=== PATIENT | male | born 1945 | race Caucasian/White ===

== ENCOUNTER 2022-12-25 11:15 | Inpatient (IN) | payer MEDICARE ==
--- NOTE | 2022-12-25 11:45 | ED ---
General Adult HPI - General Chief complaint: Altered Mental Status Stated complaint: Altered Mental Status Time Seen by Provider: 12/25/22 11:22 Source: patient, EMS, RN notes reviewed Mode of arrival: EMS Limitations: altered mental status - History of Present Illness Initial comments: Patient is a pleasant 77-year-old male presenting to the emergency department with concerns for altered mental status. Patient was found outside of his vehicle. Patient is unaware where he is at. Patient states he lives in [place]. Patient was recently admitted for facility for cellulitis of left leg. Patient does not have a specific complaints otherwise. - Related Data Home Medications Medication Instructions Recorded Confirmed Albuterol Sulfate [Ventolin HFA] 2 puff INHALATION RT-Q4H PRN 12/25/22 12/25/22 Budesonide/Formoterol Fumarate 2 puff INHALATION RT-BID 12/25/22 12/25/22 [Symbicort 160-4.5 Mcg Inhaler] Ciprofloxacin HCl [Cipro] 500 mg PO BID 12/25/22 12/25/22 Furosemide [Lasix] 40 mg PO BID 12/25/22 12/25/22 Insulin Lispro Protamin/Lispro 35 unit SQ HS 12/25/22 12/25/22 [humaLOG MIX 75-25 Kwikpen] Insulin Lispro Protamin/Lispro 50 unit SQ DAILY 12/25/22 12/25/22 [humaLOG MIX 75-25 Kwikpen] Naproxen [Naprosyn] 500 mg PO BID PRN 12/25/22 12/25/22 Simvastatin [Zocor] 80 mg PO HS 12/25/22 12/25/22 lisinopriL [Prinivil] 10 mg PO DAILY 12/25/22 12/25/22 metroNIDAZOLE [Flagyl] 500 mg PO BID 12/25/22 12/25/22 Allergies Allergy/AdvReac Type Severity Reaction Status Date / Time No Known Allergies Allergy Verified 12/25/22 11:22 Review of Systems ROS Statement: Those systems with pertinent positive or pertinent negative responses have been documented in the HPI. ROS Other: All systems not noted in ROS Statement are negative. Constitutional: Denies: fever Eyes: Denies: eye pain ENT: Denies: ear pain Cardiovascular: Denies: chest pain Gastrointestinal: Denies: abdominal pain Genitourinary: Denies: urgency Musculoskeletal: Denies: back pain Skin: Reports: rash General Exam Limitations: altered mental status General appearance: alert, in no apparent distress Head exam: Present: atraumatic Eye exam: Present: normal appearance, PERRL, EOMI ENT exam: Present: normal oropharynx Neck exam: Present: normal inspection. Absent: tenderness, meningismus Respiratory exam: Present: normal lung sounds bilaterally Cardiovascular Exam: Present: regular rate, normal rhythm GI/Abdominal exam: Present: soft. Absent: tenderness Extremities exam: Present: pedal edema Neurological exam: Present: alert, CN II-XII intact. Absent: motor sensory deficit Expanded Neurological exam: Present: protecting the airway Patient oriented to: Present: person. Absent: place, time Speech: Present: fluid speech Cranial nerves: EOM's Intact: Normal Motor strength exam: RUE: 5, LUE: 5, RLE: 5, LLE: 5 Eye Response: (4) open spontaneously Motor Response: (6) obeys commands Verbal Response: (4) confused conversation Psychiatric exam: Present: normal affect, normal mood Skin exam: Present: erythema (Mild erythema left lower leg) Course Vital Signs 12/25/22 12/25/22 11:17 12:44 Temperature 97.9 F Pulse Rate 88 102 H Respiratory 19 20 Rate Blood Pressure 133/92 143/71 O2 Sat by Pulse 97 96 Oximetry EKG Findings - EKG Results: EKG: interpreted by LIZBETH, sinus rhythm, normal axis, normal QRS, normal ST/T EKG shows: tachycardia Medical Decision Making - Medical Decision Making Was pt. sent in by a medical professional or institution (, PA, FEED MANAGEMENT ADVISOR, urgent care, hospital, or fci...) When possible be specific @ -[No] Did you speak to anyone other than the patient for history (EMS, parent, family, police, friend...)? What history was obtained from this source @ -[No] Did you review nursing and triage notes (agree or disagree)? Why? @ -[I reviewed and agree with nursing and triage notes] Were old charts reviewed (outside hosp., previous admission, EMS record, old EKG, old radiological studies, urgent care reports/EKG's, fci records)? Report findings @ -Discharge paperwork reviewed from visit with diagnosed with cellulitis Differential Diagnosis (chest pain, altered mental status, abdominal pain women, abdominal pain men, vaginal bleeding, weakness, fever, dyspnea, syncope, headache, dizziness, GI bleed, back pain, seizure, CVA, palpatations, mental health, musculoskeletal)? @ -Differential Altered Mental Status: Hypoglycemia, DKA, hypercapnia, ETOH, overdose, CO poisoning, trauma, myxedema coma, HTN encephalopathy, infection, encephalitis, psychosis, intercranial hemorrhage, hepatic encephalopathy, meningitis, CVA, this is not meant to be an all-inclusive list EKG interpreted by me (3pts min.). @ -[As above] X-rays interpreted by me (1pt min.). @ -Chest x-ray shows no acute process left base of her probable fibrotic/ atelectasis changes CT interpreted by me (1pt min.). @ -Report reviewed U/S interpreted by me (1pt. min.). @ -[None done] What testing was considered but not performed or refused? (CT, X-rays, U/S, labs)? Why? @ -[None] What meds were considered but not given or refused? Why? @ -[None] Did you discuss the management of the patient with other professionals (professionals i.e. , PA, FEED MANAGEMENT ADVISOR, lab, RT, psych nurse, perinatal social worker, director industrial nursing, teacher, correctional security officer, warehouse operations manager)? Give summary @ -Case was discussed with Dr. yang, who will admit covering hospital call. Was smoking cessation discussed for >3mins.? @ -[No] Was critical care preformed (if so, how long)? @ -[No] Were there social determinants of health that impacted care today? How? (Homelessness, low income, unemployed, alcoholism, drug addiction, tra nsportation, low edu. Level, literacy, decrease access to med. care, shelter, rehab)? @ -[No] Was there de-escalation of care discussed even if they declined (Discuss DNR or withdrawal of care, Hospice)? DNR status @ -[No] What co-morbidities impacted this encounter? (DM, HTN, Smoking, COPD, CAD, Cancer, CVA, ARF, Chemo, Hep., AIDS, mental health diagnosis, sleep apnea, morbid obesity)? @ -[None] Was patient admitted / discharged? Hospital course, mention meds given and route, prescriptions, significant lab abnormalities, going to OR and other pertinent info. @ -Patient presented with altered mental status. Patient has mild hyponatremia, UTI and mild cellulitis. Patient will be admitted. Undiagnosed new problem with uncertain prognosis? @ -[No] Drug Therapy requiring intensive monitoring for toxicity (Heparin, Nitro, Insulin, Cardizem)? @ -[No] Were any procedures done? @ -[No] Diagnosis/symptom? @ -Altered mental status, UTI, hyponatremia, cellulitis Acute, or Chronic, or Acute on Chronic? @ -Acute, acute, acute, acute Uncomplicated (without systemic symptoms) or Complicated (systemic symptoms)? @ -[default] Side effects of treatment? @ -[No] Exacerbation, Progression, or Severe Exacerbation? @ -[No] Poses a threat to life or bodily function? How? (Chest pain, USA, MT, pneumonia, PE, COPD, DKA, ARF, appy, cholecystitis, CVA, Diverticulitis, Homicidal, Suicidal, threat to staff... and all critical care pts) @ -[No] - Lab Data Result diagrams: 12/25/22 11:48 12/25/22 11:48 Lab Results 12/25/22 12/25/22 12/25/22 Range/Units 11:48 11:48 11:48 WBC 8.9 (3.8-10.6) k/uL RBC 3.83 L (4.30-5.90) m/uL Hgb 12.8 L (13.0-17.5) gm/dL Hct 38.9 L (39.0-53.0) % MCV 101.4 H (80.0-100.0) fL MCH 33.3 (25.0-35.0) pg MCHC 32.8 (31.0-37.0) g/dL RDW 12.2 (11.5-15.5) % Plt Count 187 (150-450) k/uL MPV 7.5 Neutrophils % 67 % Lymphocytes % 24 % Monocytes % 6 % Eosinophils % 1 % Basophils % 0 % Neutrophils # 5.9 (1.3-7.7) k/uL Lymphocytes # 2.1 (1.0-4.8) k/uL Monocytes # 0.5 (0-1.0) k/uL Eosinophils # 0.1 (0-0.7) k/uL Basophils # 0.0 (0-0.2) k/uL PT 12.1 H (9.0-12.0) sec INR 1.2 H (<1.2) APTT 23.8 (22.0-30.0) sec Sodium (137-145) mmol/L Potassium (3.5-5.1) mmol/L Chloride (98-107) mmol/L Carbon Dioxide (22-30) mmol/L Anion Gap mmol/L BUN (9-20) mg/dL Creatinine (0.66-1.25) mg/dL Est GFR (CKD-EPI)AfAm (>60 ml/min/1.73 sqM) Est GFR (CKD-EPI)NonAf (>60 ml/min/1.73 sqM) Glucose (74-99) mg/dL Calcium (8.4-10.2) mg/dL Total Bilirubin (0.2-1.3) mg/dL AST (17-59) U/L ALT (4-49) U/L Alkaline Phosphatase (38-126) U/L Troponin I (0.000-0.034) ng/mL Total Protein (6.3-8.2) g/dL Albumin (3.5-5.0) g/dL Urine Color Yellow Urine Appearance Turbid (Clear) Urine pH 5.5 (5.0-8.0) Ur Specific [place] 1.027 (1.001-1.035) Urine Protein 1+ H (Negative) Urine Glucose (UA) 4+ H (Negative) Urine Ketones 3+ H (Negative) Urine Blood Moderate H (Negative) Urine Nitrite Negative (Negative) Urine Bilirubin Negative (Negative) Urine Urobilinogen <2.0 (<2.0) mg/dL Ur Leukocyte Esterase Large H (Negative) Urine RBC 36 H (0-5) /hpf Urine WBC >182 H (0-5) /hpf Urine WBC Clumps Moderate H (None) /hpf Urine Mucus Rare H (None) /hpf Urine Opiates Screen Detected H (NotDetected) Ur Oxycodone Screen Not Detected (NotDetected) Urine Methadone Screen Not Detected (NotDetected) Ur Propoxyphene Screen Not Detected (NotDetected) Ur Barbiturates Screen Not Detected (NotDetected) U Tricyclic Antidepress Not Detected (NotDetected) Ur Phencyclidine Scrn Not Detected (NotDetected) Ur Amphetamines Screen Not Detected (NotDetected) U Methamphetamines Scrn Not Detected (NotDetected) U Benzodiazepines Scrn Not Detected (NotDetected) Urine Cocaine Screen Not Detected (NotDetected) U Marijuana (THC) Screen Not Detected (NotDetected) Serum Alcohol mg/dL 12/25/22 12/25/22 Range/Units 11:48 11:48 WBC (3.8-10.6) k/uL RBC (4.30-5.90) m/uL Hgb (13.0-17.5) gm/dL Hct (39.0-53.0) % MCV (80.0-100.0) fL MCH (25.0-35.0) pg MCHC (31.0-37.0) g/dL RDW (11.5-15.5) % Plt Count (150-450) k/uL MPV Neutrophils % % Lymphocytes % % Monocytes % % Eosinophils % % Basophils % % Neutrophils # (1.3-7.7) k/uL Lymphocytes # (1.0-4.8) k/uL Monocytes # (0-1.0) k/uL Eosinophils # (0-0.7) k/uL Basophils # (0-0.2) k/uL PT (9.0-12.0) sec INR (<1.2) APTT (22.0-30.0) sec Sodium 129 L (137-145) mmol/L Potassium 4.4 (3.5-5.1) mmol/L Chloride 96 L (98-107) mmol/L Carbon Dioxide 20 L (22-30) mmol/L Anion Gap 13 mmol/L BUN 20 (9-20) mg/dL Creatinine 0.52 L (0.66-1.25) mg/dL Est GFR (CKD-EPI)AfAm >90 (>60 ml/min/1.73 sqM) Est GFR (CKD-EPI)NonAf >90 (>60 ml/min/1.73 sqM) Glucose 270 H (74-99) mg/dL Calcium 8.5 (8.4-10.2) mg/dL Total Bilirubin 1.1 (0.2-1.3) mg/dL AST 19 (17-59) U/L ALT 15 (4-49) U/L Alkaline Phosphatase 81 (38-126) U/L Troponin I <0.012 (0.000-0.034) ng/mL Total Protein 6.9 (6.3-8.2) g/dL Albumin 3.4 L (3.5-5.0) g/dL Urine Color Urine Appearance (Clear) Urine pH (5.0-8.0) Ur Specific [place] (1.001-1.035) Urine Protein (Negative) Urine Glucose (UA) (Negative) Urine Ketones (Negative) Urine Blood (Negative) Urine Nitrite (Negative) Urine Bilirubin (Negative) Urine Urobilinogen (<2.0) mg/dL Ur Leukocyte Esterase (Negative) Urine RBC (0-5) /hpf Urine WBC (0-5) /hpf Urine WBC Clumps (None) /hpf Urine Mucus (None) /hpf Urine Opiates Screen (NotDetected) Ur Oxycodone Screen (NotDetected) Urine Methadone Screen (NotDetected) Ur Propoxyphene Screen (NotDetected) Ur Barbiturates Screen (NotDetected) U Tricyclic Antidepress (NotDetected) Ur Phencyclidine Scrn (NotDetected) Ur Amphetamines Screen (NotDetected) U Methamphetamines Scrn (NotDetected) U Benzodiazepines Scrn (NotDetected) Urine Cocaine Screen (NotDetected) U Marijuana (THC) Screen (NotDetected) Serum Alcohol <10 mg/dL Disposition Clinical Impression: Altered mental status Disposition: ADMITTED IP TO THIS [facility] Is patient prescribed a controlled substance at d/c from ED?: No Referrals: Nonstaff,Physician [Primary Care Provider] - 1-2 days Time of Disposition: 13:57
[2022-12-25 12:02] LABS: Basophils % (A) 0 %; Eosinophils # (A) 0.1 k/uL (0-0.7); Eosinophils % (A) 1 %; HCT 38.9 % (39.0-53.0); HGB 12.8 gm/dL (13.0-17.5); Lymphocytes # (A) 2.1 k/uL (1.0-4.8); Lymphocytes % (A) 24 %; MCH 33.3 pg (25.0-35.0); MCHC 32.8 g/dL (31.0-37.0); MCV 101.4 fL (80.0-100.0); Mean Platelet Volume 7.5; Monocytes # (A) 0.5 k/uL (0-1.0); Monocytes % (A) 6 %; Neutrophils # (A) 5.9 k/uL (1.3-7.7); Neutrophils % (A) 67 %; Platelet Count 187 k/uL (150-450); RBC 3.83 m/uL (4.30-5.90); RDW 12.2 % (11.5-15.5); WBC 8.9 k/uL (3.8-10.6)
[2022-12-25 12:07] LABS: Appearance,Urine Turbid (Clear); Bilirubin,Urine Negative (Negative); Blood,Urine Moderate (Negative); Color,Urine Yellow; Glucose,Urine (UA) 4+ (Negative); Leukocyte Esterase,Urine Large (Negative); Mucus,Urine Rare /hpf; Nitrite,Urine Negative (Negative); PH, Urine 5.5 (5.0-8.0); Protein,Urine 1+ (Negative); RBC,Urine 36 /hpf (0-5); Specific Gravity,Urine 1.027 (1.001-1.035); Urobilinogen,Urine <2.0 mg/dL (<2.0); WBC,Urine >182 /hpf (0-5)
[2022-12-25 12:09] LABS: ALT 15 U/L (4-49); AST 19 U/L (17-59); African American GFR (CKD) >90 (>60 ml/min/1.73 sqM); Albumin 3.4 g/dL (3.5-5.0); Alcohol <10 mg/dL; Alkaline Phosphatase 81 U/L (38-126); Anion Gap 13 mmol/L; Blood Urea Nitrogen 20 mg/dL (9-20); Calcium 8.5 mg/dL (8.4-10.2); Carbon Dioxide 20 mmol/L (22-30); Chloride 96 mmol/L (98-107); Glucose 270 mg/dL (74-99); Non-African American GFR(CKD) >90 (>60 ml/min/1.73 sqM); Potassium 4.4 mmol/L (3.5-5.1); Sodium 129 mmol/L (137-145); Total Bilirubin 1.1 mg/dL (0.2-1.3); Total Protein 6.9 g/dL (6.3-8.2)
--- NOTE | 2022-12-25 12:11 | XR ---
EXAMINATION TYPE: XR chest 2V DATE OF EXAM: 12/25/2022 12:07 PM COMPARISON: None TECHNIQUE: XR chest 2V Frontal and lateral views of the chest. CLINICAL INDICATION:Male, 77 years old with history of altered mental status; FINDINGS: Lungs/Pleura: There is flattening of the diaphragm with increased lucency of the lungs. No evidence o f pneumothorax, pleural effusion or focal consolidation. Left basilar probable fibrotic changes/atele ctasis. Pulmonary vascularity: Unremarkable. Heart/mediastinum: Cardiomediastinal silhouette is unremarkable. Atherosclerotic calcifications are seen in the aorta. Musculoskeletal: Multiple level degenerative disc disease changes seen throughout the spine. IMPRESSION: COPD changes with left basilar probable fibrotic changes/atelectasis.
[2022-12-25 12:14] LABS: INR 1.2 (<1.2); Partial Thromboplastin Time 23.8 sec (22.0-30.0); Prothrombin Time 12.1 sec (9.0-12.0)
[2022-12-25 12:15] LABS: Ketones,Urine 3+ (Negative)
[2022-12-25 12:17] LABS: Amphetamine Screen,Urine Not Detected (NotDetected); Barbiturate Screen,Urine Not Detected (NotDetected); Benzodiazepines Screen,Urine Not Detected (NotDetected); Cocaine Screen,Urine Not Detected (NotDetected); Methadone Screen, Urine Not Detected (NotDetected); Opiate Screen,Urine Detected (NotDetected); Oxycodone Screen, Urine Not Detected (NotDetected); Phencyclidine Screen,Urine Not Detected (NotDetected); Tricyclic Antidepressant,Urine Not Detected (NotDetected); Urn Cannabinoid Scrn Not Detected (NotDetected)
--- NOTE | 2022-12-25 12:53 | CT ---
EXAMINATION TYPE: CT brain wo con CT DLP: 1902.1 mGycm, Automated exposure control for dose reduction was used. DATE OF EXAM: 12/25/2022 12:36 PM COMPARISON: None. CLINICAL INDICATION:Male, 77 years old with history of Altered mental status, Altered mental status. TECHNIQUE: Brain: Multiple axial CT images of the brain were obtained without IV contrast. Coronal and sagittal reformats reviewed. FINDINGS: Brain: Extra-axial spaces: No abnormal extra-axial fluid collections. Ventricular system: Dilatation in proportion to cerebral atrophy. Cerebral parenchyma: Cerebral atrophy. No acute intraparenchymal hemorrhage or mass effect. The mujica -white junction is well differentiated. Scattered hypoattenuating areas are seen within the white mat ter. Cerebellum: Unremarkable. Mass effect: No evidence of midline shift. Intracranial vasculature: Atherosclerotic calcifications of the intracranial vessels. Soft tissues: Normal. Calvarium/osseous structures: No depressed skull fracture. Post surgical changes from bilateral front al craniotomy. Paranasal sinuses and mastoid air cells: Mastoid air cells are clear. Postsurgical changes of the lonny ateral maxillary sinuses. Moderate mucosal thickening throughout the ethmoid and frontal sinuses. Visualized orbits: Bilateral aphakia IMPRESSION: 1. No acute intracranial process. 2. Nonspecific white matter changes, likely secondary to chronic small vessel ischemic disease. 3. Postsurgical changes. 4. Paranasal sinus disease.
[2022-12-25] MEDS ORDERED: ACETAMINOPHEN TAB 325 MG TAB PO PRN (13:58)
[2022-12-25] MEDS ORDERED: NALOXONE 0.4 MG/ML 1 ML VIAL IV PRN (13:58)
[2022-12-25] MEDS: SODIUM CHLORIDE 0.9% 1,000 ML IV SCH (14:55)
--- NOTE | 2022-12-25 15:24 | P.HPIM ---
History of Present Illness this is a pleasant 77 years old male with unknown past medical history Pt presents to for c/o ams after being found by passerby on side of road. Patient could not provide information. He is fully awake and answers questions mostly appropriately and logically however he does not know why he came to the hospital and who brought him to the hospital. As per staff and family patient got confusion a lot and this time he got confu sed as well and a pickup his keys and drove his car total return out of gas and then he started walking before police found him and brought him to the hospital Patient now time but he couldn't tell been informed of the president. Description of from dry cough. He denies any specific symptoms. He denies headache dizziness weakness or numbness. No chest pain or dyspnea. No abdominal pain vomiting diarrhea or urinary complaints. He is a 50 year smoker and he quit. Has been a while. No alcohol or illicit drugs. Currently patient looks comfortable and relaxed secondary Vitas looks stable, patient is afebrile, mildly tachycardic Labs: Hemoglobin 12.8, INR 1.2, sodium 129, glucose elevated 270. There is no BMP and liver enzymes are unremarkable. Urine analysis is suspicious for infection. Urine drug screen is positive for opioids CT of the brain: No acute process. chest xray: COPD changes, left basilar palpable fibrotic changes/atelectasis EKG: Sinus tachycardia 101, no significant ST-T changes. Patient is started on normal saline 75 mL/h AcipHex Review of Systems Review of systems CONSTITUTIONAL: No fever, no malaise, no fatigue. HEENT: No recent visual problems or hearing problems. Denied any sore throat. CARDIOVASCULAR: No orthopnea, PND, no palpitations, no syncope. PULMONARY: No shortness of breath, no cough, no hemoptysis. GASTROINTESTINAL: No diarrhea, no nausea, no vomiting, no abdominal pain. Normoactive bowel sounds. NEUROLOGICAL: No headaches, no weakness, no numbness. HEMATOLOGICAL: Denies any bleeding or petechiae. GENITOURINARY: Denies any burning micturition, frequency, or urgency. MUSCULOSKELETAL/RHEUMATOLOGICAL: Denies any joint pain, swelling, or any muscle pain. ENDOCRINE: Denies any polyuria or polydipsia. Medications and Allergies Home Medications Medication Instructions Recorded Confirmed Type Albuterol Sulfate [Ventolin HFA] 2 puff INHALATION RT-Q4H PRN 12/25/22 12/25/22 History Budesonide/Formoterol Fumarate 2 puff INHALATION RT-BID 12/25/22 12/25/22 History [Symbicort 160-4.5 Mcg Inhaler] Ciprofloxacin HCl [Cipro] 500 mg PO BID 12/25/22 12/25/22 History Furosemide [Lasix] 40 mg PO BID 12/25/22 12/25/22 History Insulin Lispro Protamin/Lispro 35 unit SQ HS 12/25/22 12/25/22 History [humaLOG MIX 75-25 Kwikpen] Insulin Lispro Protamin/Lispro 50 unit SQ DAILY 12/25/22 12/25/22 History [humaLOG MIX 75-25 Kwikpen] Naproxen [Naprosyn] 500 mg PO BID PRN 12/25/22 12/25/22 History Simvastatin [Zocor] 80 mg PO HS 12/25/22 12/25/22 History lisinopriL [Prinivil] 10 mg PO DAILY 12/25/22 12/25/22 History metroNIDAZOLE [Flagyl] 500 mg PO BID 12/25/22 12/25/22 History Allergies Allergy/AdvReac Type Severity Reaction Status Date / Time No Known Allergies Allergy Verified 12/25/22 11:22 Physical Exam Vitals: Vital Signs Temp Pulse Resp BP Pulse Ox 12/25/22 12:44 102 H 20 143/71 96 12/25/22 11:17 97.9 F 88 19 133/92 97 Intake and Output 12/24/22 12/25/22 12/25/22 22:59 06:59 14:59 Other: Weight 88.451 kg -GENERAL: The patient is alert and oriented x1-2, not in any acute distress. Well developed, well nourished. HEENT: Pupils are round and equally reacting to light. EOMI. No scleral icterus. No conjunctival pallor. Normocephalic, atraumatic. No pharyngeal erythema. No thyromegaly. CARDIOVASCULAR: S1 and S2 present. No murmurs, rubs, or gallops. PULMONARY: Chest is clear to auscultation, no wheezing , no crackles. ABDOMEN: Soft, nontender, nondistended, normoactive bowel sounds. No palpable organomegaly. MUSCULOSKELETAL: No joint swelling or deformity. EXTREMITIES: No cyanosis, clubbing, or pedal edema. NEUROLOGICAL: Gross neurological examination did not reveal any focal deficits. SKIN: No rashes. no petechiae. Results CBC & Chem 7: 12/25/22 11:48 12/25/22 11:48 Labs: Abnormal Lab Results - Last 24 Hours (Table) 12/25/22 12/25/22 12/25/22 Range/Units 11:48 11:48 11:48 RBC 3.83 L (4.30-5.90) m/uL Hgb 12.8 L (13.0-17.5) gm/dL Hct 38.9 L (39.0-53.0) % MCV 101.4 H (80.0-100.0) fL PT 12.1 H (9.0-12.0) sec INR 1.2 H (<1.2) Sodium (137-145) mmol/L Chloride (98-107) mmol/L Carbon Dioxide (22-30) mmol/L Creatinine (0.66-1.25) mg/dL Glucose (74-99) mg/dL Albumin (3.5-5.0) g/dL Urine Protein 1+ H (Negative) Urine Glucose (UA) 4+ H (Negative) Urine Ketones 3+ H (Negative) Urine Blood Moderate H (Negative) Ur Leukocyte Esterase Large H (Negative) Urine RBC 36 H (0-5) /hpf Urine WBC >182 H (0-5) /hpf Urine WBC Clumps Moderate H (None) /hpf Urine Mucus Rare H (None) /hpf Urine Opiates Screen Detected H (NotDetected) 12/25/22 Range/Units 11:48 RBC (4.30-5.90) m/uL Hgb (13.0-17.5) gm/dL Hct (39.0-53.0) % MCV (80.0-100.0) fL PT (9.0-12.0) sec INR (<1.2) Sodium 129 L (137-145) mmol/L Chloride 96 L (98-107) mmol/L Carbon Dioxide 20 L (22-30) mmol/L Creatinine 0.52 L (0.66-1.25) mg/dL Glucose 270 H (74-99) mg/dL Albumin 3.4 L (3.5-5.0) g/dL Urine Protein (Negative) Urine Glucose (UA) (Negative) Urine Ketones (Negative) Urine Blood (Negative) Ur Leukocyte Esterase (Negative) Urine RBC (0-5) /hpf Urine WBC (0-5) /hpf Urine WBC Clumps (None) /hpf Urine Mucus (None) /hpf Urine Opiates Screen (NotDetected) Assessment and Plan Assessment: Altered mental status, most likely metabolic/toxic encephalopathy. rule out intracranial causes. Acute urinary tract infection Hyperglycemia, rule out diabetes mellitus Plan: Continue with ceftriaxone Follow-up urine culture Continue with gentle hydration Neurology consult Labs and medication were reviewed.. Continue same treatment. Continue with symptomatic treatment. Monitor labs and vitals. DVT and GI prophylaxis. Further recommendations as per clinical course of the patient DVT prophylaxis: Subcutaneous heparin GI Prophylaxis: Pepcid PT/OT: Pending Prognosis is guarded
[2022-12-25 16:28] LABS: Glucose,Whole Blood 306 mg/dL (70-110)
[2022-12-25] MEDS ORDERED: DEXTROSE 50% SYRINGE 50 ML IVP PRN ×2 (16:44)
[2022-12-25] MEDS: INSULIN ASPART (NovoLOG) 100 UNIT/ML VIAL SQ SCH ×2 (17:31→21:34)
[2022-12-25 20:30] LABS: Glucose,Whole Blood 273 mg/dL (70-110)
[2022-12-25] MEDS: ATORVASTATIN 40 MG TAB PO SCH (21:34)
[2022-12-25] MEDS: HEPARIN SODIUM,PORCINE/PF 5,000 UNIT/0.5 ML SYRINGE SQ SCH (21:35)
[2022-12-25] MEDS: FAMOTIDINE 20 MG/2 ML VIAL IV SCH (21:39)
[2022-12-26] MEDS: SODIUM CHLORIDE 0.9% 1,000 ML IV SCH (05:51)
[2022-12-26 05:53] LABS: Glucose,Whole Blood 212 mg/dL (70-110)
[2022-12-26] MEDS: INSULIN ASPART (NovoLOG) 100 UNIT/ML VIAL SQ SCH ×4 (06:34→20:53)
[2022-12-26 09:02] LABS: Basophils % (A) 1 %; Eosinophils # (A) 0.2 k/uL (0-0.7); Eosinophils % (A) 3 %; HCT 42.9 % (39.0-53.0); Lymphocytes # (A) 2.2 k/uL (1.0-4.8); Lymphocytes % (A) 26 %; MCH 33.6 pg (25.0-35.0); MCHC 32.6 g/dL (31.0-37.0); Macrocytosis Slight; Mean Platelet Volume 7.9; Monocytes # (A) 0.5 k/uL (0-1.0); Monocytes % (A) 6 %; Neutrophils # (A) 5.3 k/uL (1.3-7.7); Neutrophils % (A) 63 %; Platelet Count 200 k/uL (150-450); RBC 4.17 m/uL (4.30-5.90); RDW 12.2 % (11.5-15.5); WBC 8.3 k/uL (3.8-10.6)
[2022-12-26 09:04] LABS: ALT 15 U/L (4-49); AST 17 U/L (17-59); African American GFR (CKD) >90 (>60 ml/min/1.73 sqM); Albumin 3.3 g/dL (3.5-5.0); Albumin/Globulin Ratio 0.9; Alkaline Phosphatase 85 U/L (38-126); Anion Gap 9 mmol/L; Blood Urea Nitrogen 16 mg/dL (9-20); Calcium 8.7 mg/dL (8.4-10.2); Carbon Dioxide 29 mmol/L (22-30); Chloride 98 mmol/L (98-107); Globulin 3.5 g/dL; Glucose 224 mg/dL (74-99); Non-African American GFR(CKD) >90 (>60 ml/min/1.73 sqM); Potassium 4.1 mmol/L (3.5-5.1); Sodium 136 mmol/L (137-145); Total Bilirubin 0.7 mg/dL (0.2-1.3); Total Protein 6.8 g/dL (6.3-8.2)
[2022-12-26] MEDS: FAMOTIDINE 20 MG/2 ML VIAL IV SCH ×2 (09:23→20:17)
[2022-12-26] MEDS: HEPARIN SODIUM,PORCINE/PF 5,000 UNIT/0.5 ML SYRINGE SQ SCH ×2 (09:23→20:18)
[2022-12-26] MEDS: lisinopriL 10 MG TAB PO SCH (09:24)
--- NOTE | 2022-12-26 10:34 | P.CNNES ---
History of Present Illness Consult date: 12/26/22 Requesting physician: Osmani Figueroa Reason for Consult: ams History of Present Illness: This is a 77-year-old gentleman with history of brain bleed about 12 years ago status post nany holes bilaterally presented emergency department for altered mental status. Some of the history is obtained from patient medical records the primary attending. According to the patient he stated that yesterday was the doing well then the he remembers going to his car driving but seems she ran out of gas and the 2 women came and assisted him. According to the ED notes sees the patient was found outside his vehicle and unaware where he was at and he resides in the [place] and he was recently admitted for cellulitis of the left leg. Patient denies of any seizures. Denies of any focal weakness, numbness, any headache, any nausea vomiting, any visual disturbance or getting his words out. He states that he resides by himself. He denies being on antiplatelet or anticoagulation. Regarding the history of brain bleed about 12 years ago he was unsure what was the cause that he was told off. He denied being on anticoagulation at that time. By stated that he did require 2 nany holes that was 12 years ago. Some of the workup during his hospital visit consisted of: White blood cell has been within normal range of 8.9 28.3 thousand. Sodium is 129, sugar has been in the range of 200-300 Plasma lactic acid vein is 1.1. Calcium is 8.5 Ammonia is less than 9. Urine drug screen is leukocyte esterase was large, urine white blood cells more than 182 Urine drug screen is positive for opiates the rest is not detected in the serum alcohol was less than 10. CT of the head is reported as no acute intracranial process. Nonspecific white matter changes, likely secondary due to chronic small vessel ischemic disease. Postsurgical changes. Paranasal sinus disease. I personally reviewed the CT of the head and there is no acute or subacute ischemia. There is no bleed. Patient does have old the nany holes in the bilateral frontal region. Review of Systems Review of system: The 12 point system was reviewed and apparent positive and negative per HPI. Past Medical History Past Medical History: COPD, Diabetes Mellitus, Hyperlipidemia, Hypertension History of Any Multi-Drug Resistant Organisms: None Reported Past Surgical History: Hernia Repair Past Anesthesia/Blood Transfusion Reactions: No Reported Reaction Past Psychological History: No Psychological Hx Reported Smoking Status: Former smoker Past Alcohol Use History: None Reported Past Drug Use History: None Reported Medications and Allergies Home Medications Medication Instructions Recorded Confirmed Type Albuterol Sulfate [Ventolin HFA] 2 puff INHALATION RT-Q4H PRN 12/25/22 12/25/22 History Budesonide/Formoterol Fumarate 2 puff INHALATION RT-BID 12/25/22 12/25/22 History [Symbicort 160-4.5 Mcg Inhaler] Ciprofloxacin HCl [Cipro] 500 mg PO BID 12/25/22 12/25/22 History Furosemide [Lasix] 40 mg PO BID 12/25/22 12/25/22 History Insulin Lispro Protamin/Lispro 35 unit SQ HS 12/25/22 12/25/22 History [humaLOG MIX 75-25 Kwikpen] Insulin Lispro Protamin/Lispro 50 unit SQ DAILY 12/25/22 12/25/22 History [humaLOG MIX 75-25 Kwikpen] Naproxen [Naprosyn] 500 mg PO BID PRN 12/25/22 12/25/22 History Simvastatin [Zocor] 80 mg PO HS 12/25/22 12/25/22 History lisinopriL [Prinivil] 10 mg PO DAILY 12/25/22 12/25/22 History metroNIDAZOLE [Flagyl] 500 mg PO BID 12/25/22 12/25/22 History Allergies Allergy/AdvReac Type Severity Reaction Status Date / Time No Known Allergies Allergy Verified 12/25/22 11:22 Physical Examination - Vital Signs Vital Signs: Vital Signs Temp Pulse Pulse Resp BP BP Pulse Ox 12/26/22 06:53 98.2 F 90 24 103/57 94 L 12/26/22 01:14 97.6 F 104 H 17 96/59 93 L 12/25/22 19:05 97.9 F 87 16 120/53 92 L 12/25/22 17:00 98 F 99 19 125/84 96 12/25/22 16:15 98.1 F 109 H 16 146/70 94 L 12/25/22 12:44 102 H 20 143/71 96 12/25/22 11:17 97.9 F 88 19 133/92 97 Intake and Output 12/25/22 12/26/22 12/26/22 22:59 06:59 14:59 Intake Total 650 Output Total 925 500 Balance -275 -500 Intake: Intake, IV Titration 650 Amount Sodium Chloride 0.9% 1, 600 000 ml @ 75 mls/hr IV . [id number] [facility] Rx#:[id number] cefTRIAXone 1 gm In 50 Sodium Chloride 0.9% 50 ml @ 100 mls/hr IVPB Q12HR [facility] Rx#:[id number] Output: Urine 925 500 Other: Voiding Method External Catheter # Bowel Movements 1 Weight 88.451 kg GENERAL: The patient is laying in bed and is not in acute distress. HENT: Supple neck. NEUROLOGICAL: Higher mental function: The patient is awake, alert, oriented to self. He correctly stated he was in the hospital but did not know name. Upon telling him name of hospital and after 4-5 minutes of asking name of hospital he correctly answered. He stated year is 2002 but on second try he correctly responded. He correctly stated current state, [facility]. He is able to name objects (watch, pen, glasses). He is following simple commands. No aphasia and no neglect. Cranial nerves: The pupils are round, equal and reactive to light. Visual jacques are full to confrontation throughout. Extraocular movement is intact no nystagmus is noted. Facial sensation is normal to touch throughout. The facial strength is normal throughout. Hearing is moderately decreased bilaterally to hand rub. Tongue is midline and moved [id number] without any difficulty. No dysarthria is noted. Shoulder shrug is normal bilaterally. Motor: The strength is 5 over 5 throughout uppers. Is lifting the lowers above gravity and no focality. Has left lower extremity edema with erythema and warm to touch distal to knee. Normal tone and bulk. Cerebellum: Normal finger to nose bilaterally Sensation: Sensation is normal to touch throughout. Reflexes (right/left): 2+ in uppers and 1+ in lowers. Plantars are mute bilaterally. Results - Laboratory Findings CBC and BMP: 12/26/22 07:39 12/26/22 07:39 Abnormal Lab Findings: Abnormal Labs 12/25/22 12/25/22 12/25/22 11:48 11:48 11:48 RBC 3.83 L Hgb 12.8 L Hct 38.9 L MCV 101.4 H PT 12.1 H INR 1.2 H Sodium Chloride Carbon Dioxide Creatinine Glucose POC Glucose (mg/dL) Albumin Urine Protein 1+ H Urine Glucose (UA) 4+ H Urine Ketones 3+ H Urine Blood Moderate H Ur Leukocyte Esterase Large H Urine RBC 36 H Urine WBC >182 H Urine WBC Clumps Moderate H Urine Mucus Rare H Urine Opiates Screen Detected H 12/25/22 12/25/22 12/25/22 11:48 16:27 20:28 RBC Hgb Hct MCV PT INR Sodium 129 L Chloride 96 L Carbon Dioxide 20 L Creatinine 0.52 L Glucose 270 H POC Glucose (mg/dL) 306 H 273 H Albumin 3.4 L Urine Protein Urine Glucose (UA) Urine Ketones Urine Blood Ur Leukocyte Esterase Urine RBC Urine WBC Urine WBC Clumps Urine Mucus Urine Opiates Screen 12/26/22 12/26/22 12/26/22 05:51 07:39 07:39 RBC 4.17 L Hgb Hct MCV 103.0 H PT INR Sodium 136 L Chloride Carbon Dioxide Creatinine 0.53 L Glucose 224 H POC Glucose (mg/dL) 212 H Albumin 3.3 L Urine Protein Urine Glucose (UA) Urine Ketones Urine Blood Ur Leukocyte Esterase Urine RBC Urine WBC Urine WBC Clumps Urine Mucus Urine Opiates Screen Assessment and Plan Assessment: This is a 77-year-old gentleman who is at the [facility] ED because of altered mental status. Altered mental status and is seems due to underlying urinary tract infection as well as metabolic encephalopathy. Had recent the left lower extremity cellulitis and was treated and I'm not sure if he had any medication caused encephalopathy. Currently mentation is drastically better and there is no focal deficits on examination. Probable acute urinary tract infection Sugars has been in the range of 200-300 Hyponatremia and the sodium is 129 that improved to 136 History of brain bleed about 12 years ago and required to bilateral bur holes Recent left lower extremity cellulitis and on examination he has edema and erythema and warmth to touch on the left lower extremity below the knee Plan: I ordered a routine EEG is if his episode of confusion to rule out any underlying seizure discharges which I feel is unlikely I ordered TSH, vitamin B12, folate I'll hold off any further imaging for now since the his confusion is likely due to metabolic, underlying urinary tract infection. But if he continues to have confusion recommended to pursue with MRI of the brain Time E team has ordered a venous duplex of the left lower extremity to rule out any DVT We'll defer the rest of the medical management to primary team The plan was discussed with the patient and the primary attending Thank you for the consultation Dr. Granados will start neurology service tomorrow A.M. Time with Patient: Greater than 30
--- NOTE | 2022-12-26 10:59 | US ---
EXAMINATION TYPE: US venous doppler duplex LE DATE OF EXAM: 12/26/2022 10:46 AM COMPARISON: NONE CLINICAL INDICATION: Male, 77 years old with history of leg swelling; bilateral leg edema for 2 years SIDE PERFORMED: bilateral TECHNIQUE: The lower extremity deep venous system is examined utilizing real time linear array sonog igor with graded compression, doppler sonography and color-flow sonography. VESSELS IMAGED: Common Femoral Vein Deep Femoral Vein Greater Saphenous Vein * Femoral Vein Popliteal Vein Small Saphenous Vein * Proximal Calf Veins (* superficial vessels) Grayscale, color doppler, spectral doppler imaging performed of the deep veins of the lower extremiti es. There is normal flow, compressibility, vascular waveforms. Right Leg: no evidence of DVT Left Leg: no evidence of DVT at this time. Rouleaux flow popliteal vein IMPRESSION: No ultrasound evidence for deep venous thrombosis of the bilateral lower extremities.
[2022-12-26 11:37] LABS: Glucose,Whole Blood 267 mg/dL (70-110)
--- NOTE | 2022-12-26 14:17 | P.PN ---
Subjective this is a pleasant 77 years old male with unknown past medical history Pt presents to for c/o ams after being found by passerby on side of road. Patient could not provide information. He is fully awake and answers questions mostly appropriately and logically however he does not know why he came to the hospital and who brought him to the hospital. As per staff and family patient got confusion a lot and this time he got confused as well and a pickup his keys and drove his car total return out of gas and then he started walking before police found him and brought him to the hospital Patient now time but he couldn't tell been informed of the president. Description of from dry cough. He denies any specific symptoms. He denies headache dizziness weakness or numbness. No chest pain or dyspnea. No abdominal pain vomiting diarrhea or urinary complaints. He is a 50 year smoker and he quit. Has been a while. No alcohol or illicit drugs. Currently patient looks comfortable and relaxed secondary Vitas looks stable, patient is afebrile, mildly tachycardic Labs: Hemoglobin 12.8, INR 1.2, sodium 129, glucose elevated 270. There is no BMP and liver enzymes are unremarkable. Urine analysis is suspicious for infection. Urine drug screen is positive for opioids CT of the brain: No acute process. chest xray: COPD changes, left basilar palpable fibrotic changes/atelectasis EKG: Sinus tachycardia 101, no significant ST-T changes. Patient is started on normal saline 75 mL/h AcipHex 12/26/2022 Patient mentation looks better today he is more oriented to place and to the surrounding Patient general weakness is improving as well, no significant urinary symptoms today He has bilateral leg swelling left more than right . Therefore the aortic ultrasound of the neck which was negative for DVT in either leg. Sodium improved with 36 Glucose still elevated. we will order his insulin NovoLog 70, 30 or 7:25 at 35 units at bedtime and 50 units daily TSH is normal. CBC and BMP other than that is unremarkable. we will check hemoglobin A1c as well as ammonia level ammonia Objective - Vital Signs Vital signs: Vital Signs Temp 98.2 F 12/26/22 13:54 Pulse 101 H 12/26/22 13:54 Resp 25 H 12/26/22 13:54 BP 101/58 12/26/22 13:54 Pulse Ox 92 L 12/26/22 13:54 FiO2 Intake & Output 12/25/22 12/26/22 12/26/22 18:59 06:59 18:59 Intake Total 650 650 Output Total 925 500 900 Balance -275 -500 -250 Weight 88.451 kg Intake: Intake, IV Titration 650 650 Amount Sodium Chloride 0.9% 1, 600 600 000 ml @ 75 mls/hr IV . [id number] [facility] Rx#:[id number] cefTRIAXone 1 gm In 50 50 Sodium Chloride 0.9% 50 ml @ 100 mls/hr IVPB Q12HR [facility] Rx#:[id number] Output: Urine 925 500 900 Other: Voiding Method External Catheter External Catheter # Bowel Movements 1 - Exam -GENERAL: The patient is alert and oriented x1-2, not in any acute distress. Well developed, well nourished. HEENT: Pupils are round and equally reacting to light. EOMI. No scleral icterus. No conjunctival pallor. Normocephalic, atraumatic. No pharyngeal erythema. No thyromegaly. CARDIOVASCULAR: S1 and S2 present. No murmurs, rubs, or gallops. PULMONARY: Chest is clear to auscultation, no wheezing , no crackles. ABDOMEN: Soft, nontender, nondistended, normoactive bowel sounds. No palpable organomegaly. MUSCULOSKELETAL: No joint swelling or deformity. EXTREMITIES: No cyanosis, clubbing, or pedal edema. NEUROLOGICAL: Gross neurological examination did not reveal any focal deficits. SKIN: No rashes. no petechiae. - Labs CBC & Chem 7: 12/26/22 07:39 12/26/22 07:39 Labs: Abnormal Lab Results - Last 24 Hours (Table) 12/25/22 12/25/22 12/26/22 Range/Units 16:27 20:28 05:51 RBC (4.30-5.90) m/uL MCV (80.0-100.0) fL Sodium (137-145) mmol/L Creatinine (0.66-1.25) mg/dL Glucose (74-99) mg/dL POC Glucose (mg/dL) 306 H 273 H 212 H (70-110) mg/dL Hemoglobin A1c (<=6.0) % Albumin (3.5-5.0) g/dL 12/26/22 12/26/22 12/26/22 Range/Units 07:39 07:39 07:39 RBC 4.17 L (4.30-5.90) m/uL MCV 103.0 H (80.0-100.0) fL Sodium 136 L (137-145) mmol/L Creatinine 0.53 L (0.66-1.25) mg/dL Glucose 224 H (74-99) mg/dL POC Glucose (mg/dL) (70-110) mg/dL Hemoglobin A1c 15.1 H (<=6.0) % Albumin 3.3 L (3.5-5.0) g/dL 12/26/22 Range/Units 11:35 RBC (4.30-5.90) m/uL MCV (80.0-100.0) fL Sodium (137-145) mmol/L Creatinine (0.66-1.25) mg/dL Glucose (74-99) mg/dL POC Glucose (mg/dL) 267 H (70-110) mg/dL Hemoglobin A1c (<=6.0) % Albumin (3.5-5.0) g/dL Assessment and Plan Assessment: Altered mental status, most likely metabolic/toxic encephalopathy. rule out intracranial causes. Acute urinary tract infection Hyperglycemia, with diabetes mellitus and hyperglycemia Bilateral leg swelling, with negative for DVT ultrasound in both legs Plan: Continue with ceftriaxone Follow-up urine culture Discontinue normal saline and put the patient on a fluid restriction 15 mL per day and add IV Lasix 40 mg twice daily Resume insulin Neurology consult labs and medication reviewed.. Continue same treatment. Continue with symptomatic treatment. Monitor labs and vitals. DVT and GI prophylaxis. Further recommendations as per clinical course of the patient DVT prophylaxis: Subcutaneous heparin GI Prophylaxis: Pepcid PT/OT: Pending Prognosis is guarded
[2022-12-26] MEDS: FUROSEMIDE 10 MG/ML 4 ML VIAL IV SCH ×2 (14:55→20:18)
[2022-12-26 16:32] LABS: Glucose,Whole Blood 335 mg/dL (70-110)
[2022-12-26] MEDS: INSULN ASP PRT/INSULIN ASPART 100 UNIT/ML 10 ML VIAL SQ SCH (17:57)
[2022-12-26] MEDS: ATORVASTATIN 40 MG TAB PO SCH (20:18)
[2022-12-26 20:21] LABS: Glucose,Whole Blood 245 mg/dL (70-110)
[2022-12-27 05:19] LABS: Glucose,Whole Blood 161 mg/dL (70-110)
[2022-12-27] MEDS: INSULIN ASPART (NovoLOG) 100 UNIT/ML VIAL SQ SCH ×4 (06:40→22:39)
[2022-12-27] MEDS: INSULN ASP PRT/INSULIN ASPART 100 UNIT/ML 10 ML VIAL SQ SCH ×2 (07:34→17:07)
[2022-12-27] MEDS: lisinopriL 10 MG TAB PO SCH (07:54)
[2022-12-27] MEDS: HEPARIN SODIUM,PORCINE/PF 5,000 UNIT/0.5 ML SYRINGE SQ SCH ×2 (07:55→21:45)
[2022-12-27 09:27] LABS: BUN/Creat Ratio 24.71 Ratio (12.00-20.00); Basophils # (A) 0.06 X 10*3/uL (0.00-0.10); Basophils % (A) 0.6 %; Blood Urea Nitrogen 17.3 mg/dL (9.0-27.0); Calcium 8.9 mg/dL (8.7-10.3); Carbon Dioxide 27.5 mmol/L (21.6-31.8); Chloride 98 mmol/L (96-109); Eosinophils # (A) 0.24 X 10*3/uL (0.04-0.35); Eosinophils % (A) 2.5 %; Glucose 144 mg/dL (70-110); HCT 40.3 % (39.6-50.0); HGB 13.6 d/dL (12.0-15.0); Lymphocytes # (A) 2.93 X 10*3/uL (0.90-5.00); MCH 33.2 pg (27.0-32.0); MCHC 33.7 d/dL (32.0-37.0); MCV 98.3 FL (80.0-97.0); Mean Platelet Volume 9.4 FL (9.5-12.2); Monocytes # (A) 0.87 X 10*3/uL (0.20-1.00); Monocytes % (A) 9.2 %; NRBC Per 100 WBC 0 X 10*3/uL (0.00-0.01); Neutrophils # (A) 5.27 X 10*3/uL (1.80-7.70); Platelet Count 227 X 10*3/uL (140-440); Potassium 3.6 mmol/L (3.5-5.5); RDW 12.2 % (11.5-14.5); Sodium 139 mmol/L (135-145); WBC 9.44 X 10*3/uL (4.50-10.00)
[2022-12-27] MEDS: FUROSEMIDE 10 MG/ML 4 ML VIAL IV SCH (10:14)
[2022-12-27] MEDS: FAMOTIDINE 20 MG/2 ML VIAL IV SCH ×2 (10:14→21:45)
[2022-12-27 11:05] LABS: Glucose,Whole Blood 129 mg/dL (70-110)
[2022-12-27] MEDS ORDERED: VANCOMYCIN IV PER PHARMACY 1 EACH MISC MISCELLANE PRN (12:56)
--- NOTE | 2022-12-27 12:59 | P.PN ---
Subjective this is a pleasant 77 years old male with unknown past medical history Pt presents to for c/o ams after being found by passerby on side of road. Patient could not provide information. He is fully awake and answers questions mostly appropriately and logically however he does not know why he came to the hospital and who brought him to the hospital. As per staff and family patient got confusion a lot and this time he got confused as well and a pickup his keys and drove his car total return out of gas and then he started walking before police found him and brought him to the hospital Patient now time but he couldn't tell been informed of the president. Description of from dry cough. He denies any specific symptoms. He denies headache dizziness weakness or numbness. No chest pain or dyspnea. No abdominal pain vomiting diarrhea or urinary complaints. He is a 50 year smoker and he quit. Has been a while. No alcohol or illicit drugs. Currently patient looks comfortable and relaxed secondary Vitas looks stable, patient is afebrile, mildly tachycardic Labs: Hemoglobin 12.8, INR 1.2, sodium 129, glucose elevated 270. There is no BMP and liver enzymes are unremarkable. Urine analysis is suspicious for infection. Urine drug screen is positive for opioids CT of the brain: No acute process. chest xray: COPD changes, left basilar palpable fibrotic changes/atelectasis EKG: Sinus tachycardia 101, no significant ST-T changes. Patient is started on normal saline 75 mL/h AcipHex 12/26/2022 Patient mentation looks better today he is more oriented to place and to the surrounding Patient general weakness is improving as well, no significant urinary symptoms today He has bilateral leg swelling left more than right . Therefore the aortic ultrasound of the neck which was negative for DVT in either leg. Sodium improved with 36 Glucose still elevated. we will order his insulin NovoLog 70, 30 or 7:25 at 35 units at bedtime and 50 units daily TSH is normal. CBC and BMP other than that is unremarkable. we will check hemoglobin A1c as well as ammonia level ammonia Objective - Vital Signs Vital signs: Vital Signs Temp 97.8 F 12/27/22 06:56 Pulse 66 12/27/22 08:00 Resp 20 12/27/22 08:00 BP 106/67 12/27/22 06:56 Pulse Ox 94 L 12/27/22 06:56 FiO2 Intake & Output 12/26/22 12/27/22 12/27/22 18:59 06:59 18:59 Intake Total 650 320 Output Total 2800 2000 Balance -2150 -1680 Intake: Intake, IV Titration 650 Amount Sodium Chloride 0.9% 1, 600 000 ml @ 75 mls/hr IV . [id number] [facility] Rx#:[id number] cefTRIAXone 1 gm In 50 Sodium Chloride 0.9% 50 ml @ 100 mls/hr IVPB Q12HR [facility] Rx#:[id number] Oral 320 Output: Urine 2800 2000 Other: Voiding Method External Catheter External Catheter External Catheter # Voids 2 - Exam -GENERAL: The patient is alert and oriented x1-2, not in any acute distress. Well developed, well nourished. HEENT: Pupils are round and equally reacting to light. EOMI. No scleral icterus. No conjunctival pallor. Normocephalic, atraumatic. No pharyngeal erythema. No thyromegaly. CARDIOVASCULAR: S1 and S2 present. No murmurs, rubs, or gallops. PULMONARY: Chest is clear to auscultation, no wheezing , no crackles. ABDOMEN: Soft, nontender, nondistended, normoactive bowel sounds. No palpable organomegaly. MUSCULOSKELETAL: No joint swelling or deformity. EXTREMITIES: No cyanosis, clubbing, or pedal edema. NEUROLOGICAL: Gross neurological examination did not reveal any focal deficits. SKIN: No rashes. no petechiae. - Labs CBC & Chem 7: 12/27/22 06:27 12/27/22 06:27 Labs: Abnormal Lab Results - Last 24 Hours (Table) 12/26/22 12/26/22 12/26/22 Range/Units 07:39 07:39 16:30 RBC (4.40-5.60) X 10*6/uL MCV (80.0-97.0) FL MCH (27.0-32.0) pg MPV (9.5-12.2) FL Anion Gap (4.00-12.00) mmol/L BUN/Creatinine Ratio (12.00-20.00) Ratio Glucose (70-110) mg/dL POC Glucose (mg/dL) 335 H (70-110) mg/dL Hemoglobin A1c 15.1 H (<=6.0) % Vitamin B12 1304.0 H (200.0-944.0) pg/mL 12/26/22 12/27/22 12/27/22 Range/Units 20:20 05:13 06:27 RBC (4.40-5.60) X 10*6/uL MCV (80.0-97.0) FL MCH (27.0-32.0) pg MPV (9.5-12.2) FL Anion Gap 13.50 H (4.00-12.00) mmol/L BUN/Creatinine Ratio 24.71 H (12.00-20.00) Ratio Glucose 144 H (70-110) mg/dL POC Glucose (mg/dL) 245 H 161 H (70-110) mg/dL Hemoglobin A1c (<=6.0) % Vitamin B12 (200.0-944.0) pg/mL 12/27/22 12/27/22 Range/Units 06:27 11:03 RBC 4.10 L (4.40-5.60) X 10*6/uL MCV 98.3 H (80.0-97.0) FL MCH 33.2 H (27.0-32.0) pg MPV 9.4 L (9.5-12.2) FL Anion Gap (4.00-12.00) mmol/L BUN/Creatinine Ratio (12.00-20.00) Ratio Glucose (70-110) mg/dL POC Glucose (mg/dL) 129 H (70-110) mg/dL Hemoglobin A1c (<=6.0) % Vitamin B12 (200.0-944.0) pg/mL Microbiology - Last 24 Hours (Table) 12/25/22 14:25 Blood Culture Gram Stain - Preliminary Blood Blood Culture - Preliminary Presumptive MRSA 12/25/22 14:40 Blood Culture - Preliminary Blood Assessment and Plan Assessment: Altered mental status, most likely metabolic/toxic encephalopathy. rule out intracranial causes. Bacteremia, presumptive MRSA Acute urinary tract infection Hyperglycemia, with diabetes mellitus and hyperglycemia Bilateral leg swelling, with negative for DVT on ultrasound in both legs Plan: Continue with ceftriaxone, and vancomycin. Infectious disease consult Follow-up urine culture Discontinue normal saline and put the patient on a fluid restriction 15 mL per day and add IV Lasix 40 mg twice daily Resume insulin Neurology consult labs and medication reviewed.. Continue same treatment. Continue with sy mptomatic treatment. Monitor labs and vitals. DVT and GI prophylaxis. Further recommendations as per clinical course of the patient DVT prophylaxis: Subcutaneous heparin GI Prophylaxis: Pepcid PT/OT: Pending Prognosis is guarded
[2022-12-27 13:44] VITALS: BMI 26.4
[2022-12-27 16:13] LABS: Glucose,Whole Blood 103 mg/dL (70-110)
[2022-12-27] MEDS: VANCOMYCIN 1,500 MG in SODIUM CHLORIDE 0.9% 500 ML 500 ML IVPB SCH (17:09)
[2022-12-27 20:47] LABS: Glucose,Whole Blood 216 mg/dL (70-110)
[2022-12-27] MEDS: ATORVASTATIN 40 MG TAB PO SCH (21:45)
--- NOTE | 2022-12-27 21:52 | P.CONS ---
History of Present Illness - Reason for Consult Consult date: 12/27/22 - History of Present Illness Patient is a 77-year-old male presenting to the ER 2 days ago for evaluation of mental status changes apparently the patient was noticed to be on the side of the road by a passerby patient was confused and unaware of the surrounding patient was brought into the ER patient denies having any headache or URI symptoms no chest pain shortness of breath or cough no nausea vomiting abdominal pain or diarrhea patient did have a urinary difficulty requiring Vasquez catheter placement on presentation to the hospital patient was afebrile and no fever has been recorded subsequently patient was not tachycardic hypotensive or hypoxic patient did have a normal white count with no left shift creatinine was normal liver enzymes are normal patient did have a positive UA with large leukocyte esterase more than 1 L WBC urine testing was positive for opiates patient did have a chest x-ray that was reported COPD changes with left basilar probable fibrotic changes/atelectasis CT brain negative for any bleed patient did have a venous Doppler that was negative for DVT patient blood cultures drawn came back positive for presumptive MRSA patient was started on vancomycin infectious disease was consulted for further management of antibiotic therapy Past Medical History Past Medical History: COPD, Diabetes Mellitus, Hyperlipidemia, Hypertension History of Any Multi-Drug Resistant Organisms: None Reported Past Surgical History: Hernia Repair Past Anesthesia/Blood Transfusion Reactions: No Reported Reaction Past Psychological History: No Psychological Hx Reported Smoking Status: Former smoker Past Alcohol Use History: None Reported Past Drug Use History: None Reported Medications and Allergies Home Medications Medication Instructions Recorded Confirmed Type Albuterol Sulfate [Ventolin HFA] 2 puff INHALATION RT-Q4H PRN 12/25/22 12/25/22 History Budesonide/Formoterol Fumarate 2 puff INHALATION RT-BID 12/25/22 12/25/22 History [Symbicort 160-4.5 Mcg Inhaler] Ciprofloxacin HCl [Cipro] 500 mg PO BID 12/25/22 12/25/22 History Furosemide [Lasix] 40 mg PO BID 12/25/22 12/25/22 History Insulin Lispro Protamin/Lispro 35 unit SQ HS 12/25/22 12/25/22 History [humaLOG MIX 75-25 Kwikpen] Insulin Lispro Protamin/Lispro 50 unit SQ DAILY 12/25/22 12/25/22 History [humaLOG MIX 75-25 Kwikpen] Naproxen [Naprosyn] 500 mg PO BID PRN 12/25/22 12/25/22 History Simvastatin [Zocor] 80 mg PO HS 12/25/22 12/25/22 History lisinopriL [Prinivil] 10 mg PO DAILY 12/25/22 12/25/22 History metroNIDAZOLE [Flagyl] 500 mg PO BID 12/25/22 12/25/22 History Allergies Allergy/AdvReac Type Severity Reaction Status Date / Time No Known Allergies Allergy Verified 12/25/22 11:22 Physical Exam Vitals: Vital Signs Temp Pulse Resp BP Pulse Ox 12/27/22 08:00 66 20 12/27/22 06:56 97.8 F 66 20 106/67 94 L 12/27/22 02:04 98.1 F 65 14 113/61 92 L 12/26/22 19:51 97.4 F L 94 14 139/51 94 L 12/26/22 13:54 98.2 F 101 H 25 H 101/58 92 L Intake and Output 12/26/22 12/27/22 12/27/22 22:59 06:59 14:59 Intake Total 320 Output Total 1900 1999 Balance -1579 Intake: Oral 320 Output: Urine 1899 1999 Other: Voiding Method External Catheter External Catheter # Voids 2 Results CBC & Chem 7: 12/27/22 06:27 12/27/22 06:27 Labs: Abnormal Lab Results - Last 24 Hours (Table) 12/26/22 12/26/22 12/26/22 Range/Units 07:39 07:39 16:30 RBC (4.40-5.60) X 10*6/uL MCV (80.0-97.0) FL MCH (27.0-32.0) pg MPV (9.5-12.2) FL Anion Gap (4.00-12.00) mmol/L BUN/Creatinine Ratio (12.00-20.00) Ratio Glucose (70-110) mg/dL POC Glucose (mg/dL) 335 H (70-110) mg/dL Hemoglobin A1c 15.1 H (<=6.0) % Vitamin B12 1304.0 H (200.0-944.0) pg/mL 12/26/22 12/27/22 12/27/22 Range/Units 20:20 05:13 06:27 RBC (4.40-5.60) X 10*6/uL MCV (80.0-97.0) FL MCH (27.0-32.0) pg MPV (9.5-12.2) FL Anion Gap 13.50 H (4.00-12.00) mmol/L BUN/Creatinine Ratio 24.71 H (12.00-20.00) Ratio Glucose 144 H (70-110) mg/dL POC Glucose (mg/dL) 245 H 161 H (70-110) mg/dL Hemoglobin A1c (<=6.0) % Vitamin B12 (200.0-944.0) pg/mL 12/27/22 12/27/22 Range/Units 06:27 11:03 RBC 4.10 L (4.40-5.60) X 10*6/uL MCV 98.3 H (80.0-97.0) FL MCH 33.2 H (27.0-32.0) pg MPV 9.4 L (9.5-12.2) FL Anion Gap (4.00-12.00) mmol/L BUN/Creatinine Ratio (12.00-20.00) Ratio Glucose (70-110) mg/dL POC Glucose (mg/dL) 129 H (70-110) mg/dL Hemoglobin A1c (<=6.0) % Vitamin B12 (200.0-944.0) pg/mL Microbiology - Last 24 Hours (Table) 12/25/22 14:25 Blood Culture Gram Stain - Preliminary Blood Blood Culture - Preliminary Presumptive MRSA 12/25/22 14:40 Blood Culture - Preliminary Blood Assessment and Plan Plan: 1patient with MRSA bacteremia in this patient presented to hospital with mental status changes confusion he did have urinary symptoms of burning and difficult urination requiring Vasquez catheter placement significant positive UA likely urinary source patient currently not behaving as pneumonia abdominal soft on clinical examination no evidence of any cellulitis or joint swelling 2-vancomycin pharmacy to dose with a target trough of 15 while watching kidney function and Vanco trough closely. 3 blood cultures will be repeated document clearance of bacteremia check a CRP and a sed rate 4-ultrasound the kidney bladder area We will follow on clinical condition and cultures to further adjust medication if needed Thank you for this consultation we will follow the patient along with you Dictation was produced using [employer] software. please excuse any grammatical, word or spelling errors.- Time with Patient: Greater than 30
--- NOTE | 2022-12-27 21:58 | P.PN ---
Subjective Progress Note Date: 12/27/22 Patient was initially seen by Dr. Abdon Love. Please refer to his note for details. The patient is a 77-year-old male with history of diabetes, came with altered mental status. It was felt to be due to UTI. Patient had an EEG, TSH and B12. Patient at present states that he was confused related to "where I was". No history of seizures. No history of tongue bite. Patient states that he has history of "brain bleed", about 30+ years ago. Patient at present is laying comfortably in the bed. Offers no complaints. Objective - Vital Signs Vital signs: Vital Signs Temp 98.0 F 12/27/22 13:45 Pulse 68 12/27/22 13:45 Resp 16 12/27/22 13:45 BP 105/58 12/27/22 13:45 Pulse Ox 95 12/27/22 13:45 FiO2 Intake & Output 12/26/22 12/27/22 12/27/22 18:59 06:59 18:59 Intake Total 650 320 Output Total 2800 1999 Balance -2150 -1680 Weight 88.451 kg Intake: Intake, IV Titration 650 Amount Sodium Chloride 0.9% 1, 600 000 ml @ 75 mls/hr IV . [id number] [facility] Rx#:[id number] cefTRIAXone 1 gm In 50 Sodium Chloride 0.9% 50 ml @ 100 mls/hr IVPB Q12HR [facility] Rx#:[id number] Oral 320 Output: Urine 2800 2000 Other: Voiding Method External Catheter External Catheter External Catheter # Voids 2 - Exam On examination patient is alert and awake, in no distress. Patient could not tell the current month although he knows it is the . He states that he lives in [place] in [place]. Does not know the name of the city he is currently in. He knows that it is a hospital but does not know the name. Speech and language functions are normal. Patient states that he lives with his dog. He has 4 sons, 2 of them live in [place], and couple out of state. On cranial nerve examination, his visual jacques are full on confrontation, face is equal. Pupils are equal, round and reacting. Muscle strength, the strength is normal in the upper limbs distally and prox imally. In the lower limbs hip flexion is 5 bilaterally, ankle dorsiflexion 3- on the right, 5 left. Patient has right partial foot drop. He has history of right leg surgery at the level of fibular head. - Labs CBC & Chem 7: 12/27/22 06:27 12/27/22 06:27 Labs: Abnormal Lab Results - Last 24 Hours (Table) 12/26/22 12/26/22 12/26/22 Range/Units 07:39 16:30 20:20 RBC (4.40-5.60) X 10*6/uL MCV (80.0-97.0) FL MCH (27.0-32.0) pg MPV (9.5-12.2) FL Anion Gap (4.00-12.00) mmol/L BUN/Creatinine Ratio (12.00-20.00) Ratio Glucose (70-110) mg/dL POC Glucose (mg/dL) 335 H 245 H (70-110) mg/dL Vitamin B12 1304.0 H (200.0-944.0) pg/mL 12/27/22 12/27/22 12/27/22 Range/Units 05:13 06:27 06:27 RBC 4.10 L (4.40-5.60) X 10*6/uL MCV 98.3 H (80.0-97.0) FL MCH 33.2 H (27.0-32.0) pg MPV 9.4 L (9.5-12.2) FL Anion Gap 13.50 H (4.00-12.00) mmol/L BUN/Creatinine Ratio 24.71 H (12.00-20.00) Ratio Glucose 144 H (70-110) mg/dL POC Glucose (mg/dL) 161 H (70-110) mg/dL Vitamin B12 (200.0-944.0) pg/mL 12/27/22 Range/Units 11:03 RBC (4.40-5.60) X 10*6/uL MCV (80.0-97.0) FL MCH (27.0-32.0) pg MPV (9.5-12.2) FL Anion Gap (4.00-12.00) mmol/L BUN/Creatinine Ratio (12.00-20.00) Ratio Glucose (70-110) mg/dL POC Glucose (mg/dL) 129 H (70-110) mg/dL Vitamin B12 (200.0-944.0) pg/mL Microbiology - Last 24 Hours (Table) 12/25/22 14:25 Blood Culture Gram Stain - Preliminary Blood Blood Culture - Preliminary Presumptive MRSA 12/25/22 14:40 Blood Culture - Preliminary Blood Assessment and Plan Assessment: This is a 77-year-old gentleman presented with altered mental status. Altered mental status and is seems due to underlying urinary tract infection as well as metabolic encephalopathy. Had recent the left lower extremity cellulitis and was treated and I'm not sure if he had any medication caused encephalopathy. Currently mentation is drastically better and there is no focal deficits on examination. Probable acute urinary tract infection Diabetes, poorly controlled, with A1c 15.1. 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 Folate deficiency Recent left lower extremity cellulitis and on examination he has edema and erythema and warmth to touch on the left lower extremity below the knee Plan: Patient's altered mental status was likely due to metabolic encephalopathy. Patient's mentation appears to be at baseline. Routine EEG was performed. It revealed intermittent, independent left frontal temporal, and right temporal focal arrhythmic delta slowing, suggestive of focal cortical neuronal dysfunction in the above-described location. Infrequent, left frontal sharp waves were seen, which may suggest underlying cortical irritability and tendency for seizure. Clinical correlation is strongly recommended. Patient never has history of any seizures in the past. His current altered mentation likely related to metabolic encephalopathy related to multiple medical/metabolic conditions mentioned above. No clinical evidence of seizures. No indication for antiepileptic medication at this time. Suggest avoid seizure triggers, like sleep deprivation, alcohol or any medication, that lower seizure threshold like Wellbutrin or tramadol. TSH 0.843, vitamin B12 1304, folate 4.5. We will start folate 1 mg daily. We will hold off any further imaging for now since the his confusion is likely due to metabolic, underlying urinary tract infection. Ultrasound of the bilateral lower extremities negative for DVT. We'll defer the rest of the medical management to primary team No other neurological workup indicated.
--- NOTE | 2022-12-28 01:40 | EEG ---
ELECTROENCEPHALOGRAM REPORT PREAMBLE: This is a 77-year-old male with a previous history of craniotomy over 12 years ago, came with altered mental status. CURRENT MEDICATIONS: 1. Lipitor. 2. Pepcid. 3. Lasix. 4. Heparin. 5. NovoLog. 6. Zestril. EEG FINDINGS: This is a 21-channel digital EEG recorded with video component, utilizing 10/20 international system with referential and bipolar montages. Background consists of moderately well-developed and regulated, mixed frequencies of some alpha and some theta activity seen in bihemispheric region. Background is posterior dominant and seems to be reactive to eye opening and closing. Some myogenic activity was noted in the frontal region. Frequent, intermittent high amplitude arrhythmic delta slowing was seen in the left frontal temporal region. Some independent right temporal slowing was frequently seen as well. Frequent right frontal sharp waves were also seen. Drowsiness was seen, but deeper stages of sleep were not seen. No electrographic seizure was recorded. IMPRESSION: This is an abnormal EEG due to intermittent focal slowing involving the left frontal temporal, and right temporal region, suggest focal cortical neuronal dysfunction. Infrequent left frontal-sharp waves were seen, which may be related to underlying breach rhythm, although focal cortical irritability and tendency for seizure is also a possibility. Clinical correlation is strongly recommended. No electrographic seizure was recorded. MMODL / IJN: [id number] /
[2022-12-28] MEDS: VANCOMYCIN 1,500 MG in SODIUM CHLORIDE 0.9% 500 ML 500 ML IVPB SCH ×2 (02:41→14:12)
[2022-12-28 06:32] LABS: Glucose,Whole Blood 180 mg/dL (70-110)
[2022-12-28] MEDS: INSULIN ASPART (NovoLOG) 100 UNIT/ML VIAL SQ SCH ×4 (06:39→21:39)
[2022-12-28 07:07] LABS: ALT 17 U/L (4-49); AST 22 U/L (17-59); African American GFR (CKD) >90 (>60 ml/min/1.73 sqM); Albumin 3.1 g/dL (3.5-5.0); Albumin/Globulin Ratio 0.9; Alkaline Phosphatase 78 U/L (38-126); Anion Gap 7 mmol/L; Blood Urea Nitrogen 23 mg/dL (9-20); C Reactive Protein 5.9 mg/dL (<1.0); Calcium 8.6 mg/dL (8.4-10.2); Carbon Dioxide 31 mmol/L (22-30); Chloride 95 mmol/L (98-107); Globulin 3.6 g/dL; Glucose 184 mg/dL (74-99); Non-African American GFR(CKD) >90 (>60 ml/min/1.73 sqM); Potassium 3.8 mmol/L (3.5-5.1); Sodium 133 mmol/L (137-145); Total Bilirubin 0.5 mg/dL (0.2-1.3); Total Protein 6.7 g/dL (6.3-8.2)
[2022-12-28] MEDS: INSULN ASP PRT/INSULIN ASPART 100 UNIT/ML 10 ML VIAL SQ SCH ×2 (07:26→17:02)
[2022-12-28] MEDS: FAMOTIDINE 20 MG/2 ML VIAL IV SCH ×2 (07:42→21:40)
[2022-12-28] MEDS ORDERED: QUEtiapine 25 MG TAB PO PRN (08:34)
--- NOTE | 2022-12-28 09:59 | US ---
EXAMINATION TYPE: US kidneys/renal and bladder DATE OF EXAM: 12/28/2022 COMPARISON: NONE CLINICAL INDICATION: Male, 77 years old with history of uti and bacteremia; uti exam limited due to b owel gas. EXAM MEASUREMENTS: Right Kidney: 9.3 x 4.6 x 4.3 cm Left Kidney: 11.8 x 5.4 x 4.0 cm Right Kidney: No hydronephrosis or masses seen Left Kidney: No hydronephrosis or masses seen Bladder: anechoic Bilateral Jets seen: no There is no evidence for hydronephrosis at this point in time. No nephrolithiasis is seen. No gregg s are identified. The urinary bladder is anechoic. Bilateral ureteral jets are seen. IMPRESSION: Unremarkable study
[2022-12-28] MEDS: HEPARIN SODIUM,PORCINE/PF 5,000 UNIT/0.5 ML SYRINGE SQ SCH ×2 (11:08→21:39)
[2022-12-28 11:10] LABS: Basophils # (A) 0.07 X 10*3/uL (0.00-0.10); Basophils % (A) 0.8 %; Eosinophils # (A) 0.29 X 10*3/uL (0.04-0.35); Eosinophils % (A) 3.3 %; HCT 38.8 % (39.6-50.0); HGB 12.8 d/dL (13.0-17.0); Lymphocytes # (A) 3.32 X 10*3/uL (0.90-5.00); Lymphocytes % (A) 37.7 %; MCH 32.7 pg (27.0-32.0); Mean Platelet Volume 9.3 FL (9.5-12.2); Monocytes # (A) 0.84 X 10*3/uL (0.20-1.00); Monocytes % (A) 9.5 %; NRBC Per 100 WBC 0 X 10*3/uL (0.00-0.01); Neutrophils # (A) 4.21 X 10*3/uL (1.80-7.70); Neutrophils % (A) 47.9 %; Platelet Count 249 X 10*3/uL (140-440); RBC 3.92 X 10*6/uL (4.40-5.60); RDW 12.3 % (11.5-14.5)
[2022-12-28] MEDS: FOLIC ACID 1 MG TAB PO SCH (11:12)
[2022-12-28] MEDS: lisinopriL 10 MG TAB PO SCH (11:12)
--- NOTE | 2022-12-28 11:14 | P.PN ---
Subjective this is a pleasant 77 years old male with unknown past medical history Pt presents to for c/o ams after being found by passerby on side of road. Patient could not provide information. He is fully awake and answers questions mostly appropriately and logically however he does not know why he came to the hospital and who brought him to the hospital. As per staff and family patient got confusion a lot and this time he got confused as well and a pickup his keys and drove his car total return out of gas and then he started walking before police found him and brought him to the hospital Patient now time but he couldn't tell been informed of the president. Description of from dry cough. He denies any specific symptoms. He denies headache dizziness weakness or numbness. No chest pain or dyspnea. No abdominal pain vomiting diarrhea or urinary complaints. He is a 50 year smoker and he quit. Has been a while. No alcohol or illicit drugs. Currently patient looks comfortable and relaxed secondary Vitas looks stable, patient is afebrile, mildly tachycardic Labs: Hemoglobin 12.8, INR 1.2, sodium 129, glucose elevated 270. There is no BMP and liver enzymes are unremarkable. Urine analysis is suspicious for infection. Urine drug screen is positive for opioids CT of the brain: No acute process. chest xray: COPD changes, left basilar palpable fibrotic changes/atelectasis EKG: Sinus tachycardia 101, no significant ST-T changes. Patient is started on normal saline 75 mL/h AcipHex 12/26/2022 Patient mentation looks better today he is more oriented to place and to the surrounding Patient general weakness is improving as well, no significant urinary symptoms today He has bilateral leg swelling left more than right . Therefore the aortic ultrasound of the neck which was negative for DVT in either leg. Sodium improved with 36 Glucose still elevated. we will order his insulin NovoLog 70, 30 or 7:25 at 35 units at bedtime and 50 units daily TSH is normal. CBC and BMP other than that is unremarkable. we will check hemoglobin A1c as well as ammonia level ammonia 12/28/2022 Patient manner problem is bacteremia most likely secondary to presumptive MRSA, which is currently covered with IV vancomycin. Also infectious disease were consulted. Last night patient was more agitated and I got a call from the bedside nurse. Also his IV line was pulled out by the patient because he was thirsty and he wanted to drink water while his fluid restriction. Fluid dissection was taken out and patient can start drinking water. Seroquel when necessary is ordered. I told the nurse when it midline because patient is on IV vancomycin. This morning he was more calm pleasant but naked, it looks mildly confused compared to yesterday. Currently he is off IV Lasix and IV fluids. TSH is within the reference range, B12 is high. EEG is pending urine cultures pending and final result of blood cultures pending. Renal ultrasound is showing unremarkable study Sugar is currently controlled despite hemoglobin A1c is 15.1% Active Medications Generic Name Dose Route Start Last Admin Trade Name Freq PRN Reason Stop Dose Admin Acetaminophen 650 mg 12/25/22 13:58 Acetaminophen Tab 325 Mg Tab PO Q6HR PRN Mild Pain or Fever > 100.5 Atorvastatin Calcium 40 mg 12/25/22 21:00 12/27/22 21:45 Atorvastatin 40 Mg Tab PO Not Given HS [facility] Dextrose/Water 25 ml 12/25/22 16:44 Dextrose 50% Syringe 50 Ml IVP PER PROTOCOL PRN Hypoglycemia Protocol Dextrose/Water 50 ml 12/25/22 16:44 Dextrose 50% Syringe 50 Ml IVP PER PROTOCOL PRN Hypoglycemia Protocol Famotidine 20 mg 12/25/22 21:00 12/28/22 07:42 Famotidine 20 Mg/2 Ml Vial IV Not Given Q12HR WLAT Folic Acid 1 mg 12/28/22 09:00 Folic Acid 1 Mg Tab PO DAILY [facility] Heparin Sodium (Porcine) 5,000 unit 12/25/22 21:00 12/28/22 11:08 Heparin Sodium,Porcine/Pf 5,000 Unit/0.5 Ml Syringe SQ Not Given Q12HR [facility] Vancomycin HCl 1,500 mg/ 500 mls @ 167 mls/hr 12/27/22 14:00 12/28/22 02:41 Sodium Chloride IVPB 167 mls/hr Q12H [facility] Administration Insulin Aspart 0 unit 12/25/22 17:30 12/28/22 06:39 Insulin Aspart (Novolog) 100 Unit/Ml Vial SQ 2 unit ACHS [facility] Administration Protocol Insulin Aspart 35 unit 12/26/22 17:30 12/27/22 17:07 Insuln Asp Prt/Insulin Aspart 100 Unit/Ml 10 Ml Vial SQ 35 unit AC-SUPPER WALT Administration Insulin Aspart 50 unit 12/27/22 07:30 12/28/22 07:26 Insuln Asp Prt/Insulin Aspart 100 Unit/Ml 10 Ml Vial SQ 50 unit [id number] [facility] Administration Lisinopril 10 mg 12/26/22 09:00 12/27/22 07:54 Lisinopril 10 Mg Tab PO 10 mg DAILY [facility] Administration Miscellaneous Information 0 each 12/29/22 13:00 Vancomycin Trough Due 1 Each Misc MISCELLANE 12/29/22 13:01 DIRECTED ONE Naloxone HCl 0.2 mg 12/25/22 13:58 Naloxone 0.4 Mg/Ml 1 Ml Vial IV Q2M PRN Opioid Reversal Quetiapine Fumarate 12.5 mg 12/28/22 08:34 Quetiapine 25 Mg Tab PO BID PRN Agitation or Acute Anxiety Objective - Vital Signs Vital signs: Vital Signs Temp 97.4 F L 12/28/22 07:49 Pulse 73 12/28/22 07:49 Resp 16 12/28/22 07:49 BP 112/67 12/28/22 07:49 Pulse Ox 95 12/28/22 07:49 FiO2 Intake & Output 12/27/22 12/28/22 12/28/22 18:59 06:59 18:59 Weight 88.451 kg Other: Voiding Method External Catheter Diaper External Catheter # Voids 3 - Exam -GENERAL: The patient is alert and oriented x1-2, not in any acute distress. Well developed, well nourished. HEENT: Pupils are round and equally reacting to light. EOMI. No scleral icterus. No conjunctival pallor. Normocephalic, atraumatic. No pharyngeal erythema. No thyromegaly. CARDIOVASCULAR: S1 and S2 present. No murmurs, rubs, or gallops. PULMONARY: Chest is clear to auscultation, no wheezing , no crackles. ABDOMEN: Soft, nontender, nondistended, normoactive bowel sounds. No palpable organomegaly. MUSCULOSKELETAL: No joint swelling or deformity. EXTREMITIES: No cyanosis, clubbing, or pedal edema. NEUROLOGICAL: Gross neurological examination did not reveal any focal deficits. SKIN: No rashes. no petechiae. - Labs CBC & Chem 7: 12/27/22 06:27 12/28/22 06:24 Labs: Abnormal Lab Results - Last 24 Hours (Table) 12/27/22 12/28/22 12/28/22 Range/Units 20:46 06:24 06:30 Sodium 133 L (137-145) mmol/L Chloride 95 L (98-107) mmol/L Carbon Dioxide 31 H (22-30) mmol/L BUN 23 H (9-20) mg/dL Creatinine 0.65 L (0.66-1.25) mg/dL Glucose 184 H (74-99) mg/dL POC Glucose (mg/dL) 216 H 180 H (70-110) mg/dL C-Reactive Protein 5.9 H (<1.0) mg/dL Albumin 3.1 L (3.5-5.0) g/dL Microbiology - Last 24 Hours (Table) 12/25/22 14:40 Blood Culture - Preliminary Blood 12/25/22 14:25 Blood Culture Gram Stain - Preliminary Blood Blood Culture - Preliminary Presumptive MRSA Assessment and Plan Assessment: Altered mental status, most likely metabolic/toxic encephalopathy. rule out intracranial causes. Bacteremia, presumptive MRSA Acute urinary tract infection Hyperglycemia, with diabetes mellitus and hyperglycemia Bilateral leg swelling, with negative for DVT on ultrasound in both legs Plan: discontinue ceftriaxone, continue with vancomycin. Infectious disease consult Follow-up urine culture and fungal is also blood culture Patient currently is off IV fluid and off Lasix Resume insulin Neurology consult labs and medication reviewed.. Continue same treatment. Continue with symptomatic treatment. Monitor labs and vitals. DVT and GI prophylaxis. Further recommendations as per clinical course of the patient DVT prophylaxis: Subcutaneous heparin GI Prophylaxis: Pepcid PT/OT: Pending Prognosis is guarded
[2022-12-28 11:48] LABS: Glucose,Whole Blood 64 mg/dL (70-110)
[2022-12-28 12:15] LABS: Glucose,Whole Blood 84 mg/dL (70-110)
[2022-12-28 13:32] LABS: Erythrocyte Sedimentation Rate 24 mm/Hr (0-20)
--- NOTE | 2022-12-28 13:59 | P.PN ---
Subjective Progress Note Date: 12/28/22 Principal diagnosis: MRSA bacteremia and UTI Patient is a 77-year-old male presenting to the ER for evaluation of mental status changes, patient did have a positive UA concerning for UTI with a blood cultures subsequently coming back positive with MRSA on today's evaluation that is 12/28/2022, the patient is afebrile the patient is breathing comfortably on room air. Denies having any chest pain shortness of breath or cough no nausea no vomiting no abdominal pain no diarrhea Objective - Vital Signs Vital signs: Vital Signs Temp 97.4 F L 12/28/22 07:49 Pulse 73 12/28/22 07:49 Resp 16 12/28/22 07:49 BP 112/67 12/28/22 07:49 Pulse Ox 95 12/28/22 07:49 FiO2 Intake & Output 12/27/22 12/28/22 12/28/22 18:59 06:59 18:59 Weight 88.451 kg Other: Voiding Method External Catheter Diaper External Catheter # Voids 3 - Exam GENERAL DESCRIPTION: An elderly male lying in bed in no distress RESPIRATORY SYSTEM: Unlabored breathing , decreased breath sounds at bases HEART: S1 S2 regular rate and rhythm , ABDOMEN: Soft , no tenderness EXTREMITIES: No edema feet - Labs CBC & Chem 7: 12/28/22 06:24 12/28/22 06:24 Labs: Abnormal Lab Results - Last 24 Hours (Table) 12/27/22 12/28/22 12/28/22 Range/Units 20:46 06:24 06:24 RBC 3.92 L (4.40-5.60) X 10*6/uL Hgb 12.8 L (13.0-17.0) d/dL Hct 38.8 L (39.6-50.0) % MCV 99.0 H (80.0-97.0) FL MCH 32.7 H (27.0-32.0) pg MPV 9.3 L (9.5-12.2) FL Sodium 133 L (137-145) mmol/L Chloride 95 L (98-107) mmol/L Carbon Dioxide 31 H (22-30) mmol/L BUN 23 H (9-20) mg/dL Creatinine 0.65 L (0.66-1.25) mg/dL Glucose 184 H (74-99) mg/dL POC Glucose (mg/dL) 216 H (70-110) mg/dL C-Reactive Protein 5.9 H (<1.0) mg/dL Albumin 3.1 L (3.5-5.0) g/dL 12/28/22 12/28/22 Range/Units 06:30 11:46 RBC (4.40-5.60) X 10*6/uL Hgb (13.0-17.0) d/dL Hct (39.6-50.0) % MCV (80.0-97.0) FL MCH (27.0-32.0) pg MPV (9.5-12.2) FL Sodium (137-145) mmol/L Chloride (98-107) mmol/L Carbon Dioxide (22-30) mmol/L BUN (9-20) mg/dL Creatinine (0.66-1.25) mg/dL Glucose (74-99) mg/dL POC Glucose (mg/dL) 180 H 64 L (70-110) mg/dL C-Reactive Protein (<1.0) mg/dL Albumin (3.5-5.0) g/dL Microbiology - Last 24 Hours (Table) 12/25/22 14:40 Blood Culture - Preliminary Blood 12/25/22 14:25 Blood Culture Gram Stain - Preliminary Blood Blood Culture - Preliminary Presumptive MRSA Assessment and Plan (1) MRSA bacteremia Current Visit: Yes Status: Acute Code(s): R78.81 - BACTEREMIA; B95.62 - METHICILLIN RESIS STAPH INFCT CAUSING DISEASES [facility] SNOMED Code(s): 27782534881315124 (2) UTI (urinary tract infection) Current Visit: Yes Status: Acute Code(s): N39.0 - URINARY TRACT INFECTION, SITE NOT SPECIFIED SNOMED Code(s): 15221745 Plan: 1patient with MRSA bacteremia in this patient presented to hospital with mental status changes confusion he did have urinary symptoms of burning and difficult urination requiring Vasquez catheter placement significant positive UA likely urinary source patient currently not behaving as pneumonia abdominal soft on clinical examination no evidence of any cellulitis or joint swelling 2-ultrasound the kidney bladder area was unremarkable blood culture has been repeated to document clearance of bacteremia 3-Vancomycin pharmacy to dose target trough of 15 while watching kidney function and Vanco trough closely Dictation was produced using dragon dictation software. please excuse any grammatical, word or spelling errors.- Time with Patient: Less than 30
[2022-12-28 16:39] LABS: Glucose,Whole Blood 326 mg/dL (70-110)
[2022-12-28 20:36] LABS: Glucose,Whole Blood 195 mg/dL (70-110)
[2022-12-28] MEDS ORDERED: LINEZOLID 600 MG TAB PO STA (20:54)
[2022-12-28] MEDS: ATORVASTATIN 40 MG TAB PO SCH ×2 (21:33→22:17)
[2022-12-29] MEDS ORDERED: ALBUTEROL NEBULIZED 2.5 MG/3 ML INHALATION SCH
[2022-12-29] MEDS: VANCOMYCIN 1,500 MG in SODIUM CHLORIDE 0.9% 500 ML 500 ML IVPB SCH ×2 (00:14→14:51)
[2022-12-29 06:02] LABS: Glucose,Whole Blood 188 mg/dL (70-110)
[2022-12-29] MEDS: INSULIN ASPART (NovoLOG) 100 UNIT/ML VIAL SQ SCH ×4 (06:57→21:41)
[2022-12-29] MEDS ORDERED: INSULN ASP PRT/INSULIN ASPART 100 UNIT/ML 10 ML VIAL SQ SCH (07:30)
[2022-12-29] MEDS: lisinopriL 10 MG TAB PO SCH (08:34)
[2022-12-29] MEDS: INSULN ASP PRT/INSULIN ASPART 100 UNIT/ML 10 ML VIAL SQ SCH ×2 (08:40→17:22)
[2022-12-29] MEDS ORDERED: SODIUM CHLORIDE 0.9% 500 ML 500 ML IV ONE (08:40)
[2022-12-29] MEDS: FOLIC ACID 1 MG TAB PO SCH (08:42)
[2022-12-29] MEDS: QUEtiapine 25 MG TAB PO SCH ×2 (08:42→21:40)
[2022-12-29] MEDS: HEPARIN SODIUM,PORCINE/PF 5,000 UNIT/0.5 ML SYRINGE SQ SCH ×2 (08:43→21:41)
[2022-12-29 09:24] LABS: Basophils # (A) 0.05 X 10*3/uL (0.00-0.10); Basophils % (A) 0.6 %; Eosinophils # (A) 0.38 X 10*3/uL (0.04-0.35); Eosinophils % (A) 4.4 %; HCT 35.1 % (39.6-50.0); HGB 11.8 d/dL (13.0-17.0); Lymphocytes # (A) 3.16 X 10*3/uL (0.90-5.00); Lymphocytes % (A) 36.5 %; MCH 33.1 pg (27.0-32.0); MCHC 33.6 d/dL (32.0-37.0); MCV 98.6 FL (80.0-97.0); Mean Platelet Volume 9.2 FL (9.5-12.2); Monocytes % (A) 10.4 %; NRBC Per 100 WBC 0 X 10*3/uL (0.00-0.01); Neutrophils # (A) 4.05 X 10*3/uL (1.80-7.70); Neutrophils % (A) 46.8 %; Platelet Count 261 X 10*3/uL (140-440); RBC 3.56 X 10*6/uL (4.40-5.60); RDW 12.3 % (11.5-14.5); WBC 8.65 X 10*3/uL (4.50-10.00)
[2022-12-29] MEDS: FAMOTIDINE 20 MG/2 ML VIAL IV SCH ×2 (09:42→21:41)
[2022-12-29 09:44] LABS: Blood Urea Nitrogen 17.1 mg/dL (9.0-27.0); Calcium 8.6 mg/dL (8.7-10.3); Carbon Dioxide 26.6 mmol/L (21.6-31.8); Chloride 99 mmol/L (96-109); Glucose 175 mg/dL (70-110); Potassium 4.2 mmol/L (3.5-5.5); Sodium 135 mmol/L (135-145)
[2022-12-29] MEDS: SYMBICORT 160-4.5 MCG INHALER INHALATION SCH ×2 (09:50→21:23)
[2022-12-29] MEDS: ALBUTEROL NEBULIZED 2.5 MG/3 ML INHALATION SCH ×4 (09:50→21:23)
[2022-12-29 10:33] LABS: Glucose,Whole Blood 248 mg/dL (70-110)
--- NOTE | 2022-12-29 11:28 | P.PN ---
Subjective this is a pleasant 77 years old male with unknown past medical history Pt presents to for c/o ams after being found by passerby on side of road. Patient could not provide information. He is fully awake and answers questions mostly appropriately and logically however he does not know why he came to the hospital and who brought him to the hospital. As per staff and family patient got confusion a lot and this time he got confused as well and a pickup his keys and drove his car total return out of gas and then he started walking before police found him and brought him to the hospital Patient now time but he couldn't tell been informed of the president. Description of from dry cough. He denies any specific symptoms. He denies headache dizziness weakness or numbness. No chest pain or dyspnea. No abdominal pain vomiting diarrhea or urinary complaints. He is a 50 year smoker and he quit. Has been a while. No alcohol or illicit drugs. Currently patient looks comfortable and relaxed secondary Vitas looks stable, patient is afebrile, mildly tachycardic Labs: Hemoglobin 12.8, INR 1.2, sodium 129, glucose elevated 270. There is no BMP and liver enzymes are unremarkable. Urine analysis is suspicious for infection. Urine drug screen is positive for opioids CT of the brain: No acute process. chest xray: COPD changes, left basilar palpable fibrotic changes/atelectasis EKG: Sinus tachycardia 101, no significant ST-T changes. Patient is started on normal saline 75 mL/h AcipHex 12/26/2022 Patient mentation looks better today he is more oriented to place and to the surrounding Patient general weakness is improving as well, no significant urinary symptoms today He has bilateral leg swelling left more than right . Therefore the aortic ultrasound of the neck which was negative for DVT in either leg. Sodium improved with 36 Glucose still elevated. we will order his insulin NovoLog 70, 30 or 7:25 at 35 units at bedtime and 50 units daily TSH is normal. CBC and BMP other than that is unremarkable. we will check hemoglobin A1c as well as ammonia level ammonia 12/28/2022 Patient manner problem is bacteremia most likely secondary to presumptive MRSA, which is currently covered with IV vancomycin. Also infectious disease were consulted. Last night patient was more agitated and I got a call from the bedside nurse. Also his IV line was pulled out by the patient because he was thirsty and he wanted to drink water while his fluid restriction. Fluid dissection was taken out and patient can start drinking water. Seroquel when necessary is ordered. I told the nurse when it midline because patient is on IV vancomycin. This morning he was more calm pleasant but naked, it looks mildly confused compared to yesterday. Currently he is off IV Lasix and IV fluids. TSH is within the reference range, B12 is high. EEG is pending urine cultures pending and final result of blood cultures pending. Renal ultrasound is showing unremarkable study Sugar is currently controlled despite hemoglobin A1c is 15.1% 12/29/2022 Patient still confused, pulled his IV line for overnight and this morning he had no IV line so he did not get his IV vancomycin yesterday and he decided he given 1 time dose of Zyvox This morning he was awake, but blood pressure was on the low side therefore we switched his Seroquel when necessary and scheduled dose twice a day to help him stay calm. Patient was instructed about the importance of keeping IV line in and he verbalized understanding and acceptance and he will keep monitoring Distal as MRSA positive in his blood culture and urine culture was given IV vancomycin after IV line was started. Normal blood pressure improved after bolus of 500 mL and replacement normal saline at 75 mL/h. Patient denies any other new symptoms. Sodium improved, was better controlled. Active Medications Generic Name Dose Route Start Last Admin Trade Name Brigida PRN Reason Stop Dose Admin Acetaminophen 650 mg 12/25/22 13:58 Acetaminophen Tab 325 Mg Tab PO Q6HR PRN Mild Pain or Fever > 100.5 Atorvastatin Calcium 40 mg 12/25/22 21:00 12/27/22 21:45 Atorvastatin 40 Mg Tab PO Not Given HS WALT Dextrose/Water 25 ml 12/25/22 16:44 Dextrose 50% Syringe 50 Ml IVP PER PROTOCOL PRN Hypoglycemia Protocol Dextrose/Water 50 ml 12/25/22 16:44 Dextrose 50% Syringe 50 Ml IVP PER PROTOCOL PRN Hypoglycemia Protocol Famotidine 20 mg 12/25/22 21:00 12/28/22 07:42 Famotidine 20 Mg/2 Ml Vial IV Not Given Q12HR WALT Folic Acid 1 mg 12/28/22 09:00 Folic Acid 1 Mg Tab PO DAILY WALT Heparin Sodium (Porcine) 5,000 unit 12/25/22 21:00 12/28/22 11:08 Heparin Sodium,Porcine/Pf 5,000 Unit/0.5 Ml Syringe SQ Not Given Q12HR WALT Vancomycin HCl 1,500 mg/ 500 mls @ 167 mls/hr 12/27/22 14:00 12/28/22 02:41 Sodium Chloride IVPB 167 mls/hr Q12H WALT Administration Insulin Aspart 0 unit 12/25/22 17:30 12/28/22 06:39 Insulin Aspart (Novolog) 100 Unit/Ml Vial SQ 2 unit ACHS WALT Administration Protocol Insulin Aspart 35 unit 12/26/22 17:30 12/27/22 17:07 Insuln Asp Prt/Insulin Aspart 100 Unit/Ml 10 Ml Vial SQ 35 unit AC-SUPPER WALT Administration Insulin Aspart 50 unit 12/27/22 07:30 12/28/22 07:26 Insuln Asp Prt/Insulin Aspart 100 Unit/Ml 10 Ml Vial SQ 50 unit AC-BRKFST WALT Administration Lisinopril 10 mg 12/26/22 09:00 12/27/22 07:54 Lisinopril 10 Mg Tab PO 10 mg DAILY WALT Administration Miscellaneous Information 0 each 12/29/22 13:00 Vancomycin Trough Due 1 Each Misc MISCELLANE 12/29/22 13:01 DIRECTED ONE Naloxone HCl 0.2 mg 12/25/22 13:58 Naloxone 0.4 Mg/Ml 1 Ml Vial IV Q2M PRN Opioid Reversal Quetiapine Fumarate 12.5 mg 12/28/22 08:34 Quetiapine 25 Mg Tab PO BID PRN Agitation or Acute Anxiety Objective - Vital Signs Vital signs: Vital Signs Temp 97.6 F 12/29/22 06:55 Pulse 103 H 12/29/22 06:55 Resp 16 12/29/22 06:55 BP 134/75 12/29/22 09:40 Pulse Ox 95 12/29/22 06:55 FiO2 Intake & Output 12/28/22 12/29/22 12/29/22 18:59 06:59 18:59 Output Total 1999 Balance -1999 - Output: Urine 1999 Other: Voiding Method Urinal Diaper # Voids 4 4 # Bowel Movements 1 - Exam -GENERAL: The patient is alert and oriented x1-2, not in any acute distress. Well developed, well nourished. HEENT: Pupils are round and equally reacting to light. EOMI. No scleral icterus. No conjunctival pallor. Normocephalic, atraumatic. No pharyngeal erythema. No thyromegaly. CARDIOVASCULAR: S1 and S2 present. No murmurs, rubs, or gallops. PULMONARY: Chest is clear to auscultation, no wheezing , no crackles. ABDOMEN: Soft, nontender, nondistended, normoactive bowel sounds. No palpable organomegaly. MUSCULOSKELETAL: No joint swelling or deformity. EXTREMITIES: No cyanosis, clubbing, or pedal edema. NEUROLOGICAL: Gross neurological examination did not reveal any focal deficits. SKIN: No rashes. no petechiae. - Labs CBC & Chem 7: 12/29/22 05:25 12/29/22 05:25 Labs: Abnormal Lab Results - Last 24 Hours (Table) 12/28/22 12/28/22 12/28/22 Range/Units 06:24 11:46 16:38 RBC (4.40-5.60) X 10*6/uL Hgb (13.0-17.0) d/dL Hct (39.6-50.0) % MCV (80.0-97.0) FL MCH (27.0-32.0) pg MPV (9.5-12.2) FL Eosinophils # (0.04-0.35) X 10*3/uL ESR 24 H (0-20) mm/Hr BUN/Creatinine Ratio (12.00-20.00) Ratio Glucose (70-110) mg/dL POC Glucose (mg/dL) 64 L 326 H (70-110) mg/dL Calcium (8.7-10.3) mg/dL 12/28/22 12/29/22 12/29/22 Range/Units 20:35 05:25 05:25 RBC 3.56 L (4.40-5.60) X 10*6/uL Hgb 11.8 L (13.0-17.0) d/dL Hct 35.1 L (39.6-50.0) % MCV 98.6 H (80.0-97.0) FL MCH 33.1 H (27.0-32.0) pg MPV 9.2 L (9.5-12.2) FL Eosinophils # 0.38 H (0.04-0.35) X 10*3/uL ESR (0-20) mm/Hr BUN/Creatinine Ratio 28.50 H (12.00-20.00) Ratio Glucose 175 H (70-110) mg/dL POC Glucose (mg/dL) 195 H (70-110) mg/dL Calcium 8.6 L (8.7-10.3) mg/dL 12/29/22 12/29/22 Range/Units 06:01 10:32 RBC (4.40-5.60) X 10*6/uL Hgb (13.0-17.0) d/dL Hct (39.6-50.0) % MCV (80.0-97.0) FL MCH (27.0-32.0) pg MPV (9.5-12.2) FL Eosinophils # (0.04-0.35) X 10*3/uL ESR (0-20) mm/Hr BUN/Creatinine Ratio (12.00-20.00) Ratio Glucose (70-110) mg/dL POC Glucose (mg/dL) 188 H 248 H (70-110) mg/dL Calcium (8.7-10.3) mg/dL Microbiology - Last 24 Hours (Table) 12/25/22 14:40 Blood Culture - Preliminary Blood 12/25/22 14:25 Blood Culture Gram Stain - Final Blood Blood Culture - Final Methicillin resist S. aureus 12/25/22 11:48 Urine Culture - Final Urine,Clean Catch Methicillin resist S. aureus Assessment and Plan Assessment: Altered mental status, most likely metabolic/toxic encephalopathy. rule out int racranial causes. Bacteremia, presumptive MRSA Acute urinary tract infection Hyperglycemia, with diabetes mellitus and hyperglycemia Bilateral leg swelling, with negative for DVT on ultrasound in both legs Plan: discontinue ceftriaxone, continue with vancomycin. Infectious disease consult Follow-up urine culture and fungal is also blood culture Patient currently is off IV fluid and off Lasix Resume insulin Neurology consult labs and medication reviewed.. Continue same treatment. Continue with symptomatic treatment. Monitor labs and vitals. DVT and GI prophylaxis. Further recommendations as per clinical course of the patient DVT prophylaxis: Subcutaneous heparin GI Prophylaxis: Pepcid PT/OT: Pending Prognosis is guarded
[2022-12-29 11:37] LABS: Glucose,Whole Blood 187 mg/dL (70-110)
[2022-12-29] MEDS ORDERED: VANCOMYCIN TROUGH DUE 1 EACH MISC MISCELLANE ONE (13:00)
--- NOTE | 2022-12-29 13:55 | P.CN ---
Psychiatric Consult - . Consult date: 12/29/22 Consult:: 12/29/22 13:54 IDENTIFYING DATA: This patient is a , retired, 77-year-old male who presents for hospital on 12/25/2022 presenting with altered mental status. HISTORY OF PRESENT ILLNESS: The patient presented to the hospital on 12/25/2022, after being found altered by the side of the road. Upon presentation to the hospital, he was awake and answer questions appropriately however at a poor history of events sitting up to the hospitalization. The patient reportedly was confused a lot and this time drove his car until it ran out of gas. He started walking before the police found him and brought him to the hospital. Psychiatry has been consulted for evaluation of altered mental status. During the initial assessment for the patient, it was determined that the patient has bacteremia with MRSA. There is concerns for urinary tract infection. Upon evaluation by the psychiatrist, the patient is currently alert and oriented to person and month. He identifies as this current location as being [place]. He was informed that he is in [place]. He is currently vehemently denying any suicidal or homicidal ideation, intention, and/or plan. He is currently not reporting any auditory or visual hallucinations. He denies any paranoia or other delusions. He does not provide any significant history of psychiatric illness in the past. He reports that he is eating and sleeping well. He does acknowledge that he has been increasingly confused but is redirectable today. He is apologetic for his agitated behavior. PAST PSYCHIATRIC HISTORY: Patient denies any psychiatric history. Patient denies being on any psychiatric medications. Patient denies any previous psychiatric hospitalizations. Patient denies any psychiatric outpatient follow-up. Patient denies any history of suicide attempts in the past. PAST MEDICAL HISTORY: Past Medical History: COPD, Diabetes Mellitus, Hyperlipidemia, Hypertension History of Any Multi-Drug Resistant Organisms: None Reported Past Surgical History: Hernia Repair Past Anesthesia/Blood Transfusion Reactions: No Reported Reaction Past Psychological History: No Psychological Hx Reported Smoking Status: Former smoker Past Alcohol Use History: None Reported Past Drug Use History: None Reported ALLERGIES: NO KNOWN DRUG ALLERGIES CHEMICAL DEPENDENCY HISTORY: Patient denies any tobacco, alcohol, marijuana, or illicit drug use. FAMILY PSYCHIATRIC/SUBSTANCE USE HISTORY: No reported family history SOCIAL HISTORY: Patient reports that he is now after his a year and half ago. He is currently living in [place] with his pet dog. He reports he has 4 sons. He was previously working at [employer] prior to retiring. MENTAL STATUS EXAM: General Appearance: Patient appears to be stated age is alert, pleasant, and cooperative. Patient appears to have fair hygiene and grooming wearing hospital gown with fair eye contact. Behavior: He is calmly seated upright in his chair without any agitated behavior. Speech: Patient's speech is fluent and nonpressured. Mood/Affect: Patient reports their mood is "a little sleepy", affect is euthymic. Suicidality/Homicidality: Patient denies any suicidal or homicidal ideation, intention, and/or plan. Perceptions: Patient denies any visual hallucinations and denies any auditory hallucinations Though content/process: There is no evidence of any delusional thought content and thought process is linear and goal-directed. Memory and concentration: AAO2, grossly intact for the purposes of this session. Can spell "WORLD" backwards Judgment and insight: Fair IMPRESSIONS: Altered mental status, appears to be resolving - likely secondary to acute metabolic encephalopathy Urinary tract infection Bacteremia PLAN: -Continue your medical management -At this time patient DOES NOT meet criteria for inpatient psychiatric admission. Patient is not presenting imminent risk of harm to self or others at this time. He is not acutely manic or psychotic. Suspect change in mentation was secondary to underlying infection. He does not provide any significant history of psychiatric illness prior to this admission. -Delirium precautions recommended with patient including - avoiding use of narcotics and DIVE SUPERINTENDENT sedatives, limit anticholinergic medications when possible, frequent re-orientation, minimize use of restraints, open window shades during the day and close them at night -Would recommend the following medication changes/additions: Agree with Seroquel 12.5 mg by mouth twice a day for agitation Consider Zyprexa 2.5 mg IM when necessary if acutely agitated. -Patient does not require one-to-one sitter at this time. -Psychiatry will sign off at this point, please contact with any questions. Vital Signs Temp 97.7 F 12/29/22 12:38 Pulse 66 12/29/22 12:38 Resp 16 12/29/22 12:38 BP 123/65 12/29/22 12:38 Pulse Ox 97 12/29/22 12:38 FiO2 Intake & Output 12/28/22 12/29/22 12/29/22 18:59 06:59 18:59 Output Total 1999 Balance -1999 Output: Urine 1999 Other: Voiding Method Urinal Diaper # Voids 4 4 # Bowel Movements 1 Laboratory Results WBC 8.65 X 10*3/uL (4.50-10.00) 12/29/22 05:25 RBC 3.56 X 10*6/uL (4.40-5.60) L 12/29/22 05:25 Hgb 11.8 d/dL (13.0-17.0) L 12/29/22 05:25 Hct 35.1 % (39.6-50.0) L 12/29/22 05:25 MCV 98.6 FL (80.0-97.0) H 12/29/22 05:25 MCH 33.1 pg (27.0-32.0) H 12/29/22 05:25 MCHC 33.6 d/dL (32.0-37.0) 12/29/22 05:25 RDW 12.3 % (11.5-14.5) 12/29/22 05:25 Plt Count 261 X 10*3/uL (140-440) 12/29/22 05:25 MPV 9.2 FL (9.5-12.2) L 12/29/22 05:25 Immature Gran % (Auto) 1.30 % 12/29/22 05:25 Absolute Nucleated RBC 0 % 12/29/22 05:25 Neutrophils % 46.8 % 12/29/22 05:25 Lymphocytes % 36.5 % 12/29/22 05:25 Monocytes % 10.4 % 12/29/22 05:25 Eosinophils % 4.4 % 12/29/22 05:25 Basophils % 0.6 % 12/29/22 05:25 Immature Gran # 0.11 X 10*3/uL 12/29/22 05:25 Neutrophils # 4.05 X 10*3/uL (1.80-7.70) 12/29/22 05:25 Lymphocytes # 3.16 X 10*3/uL (0.90-5.00) 12/29/22 05:25 Monocytes # 0.90 X 10*3/uL (0.20-1.00) 12/29/22 05:25 Eosinophils # 0.38 X 10*3/uL (0.04-0.35) H 12/29/22 05:25 Basophils # 0.05 X 10*3/uL (0.00-0.10) 12/29/22 05:25 NRBC/100 WBC Diff 0 X 10*3/uL (0.00-0.01) 12/29/22 05:25 Macrocytosis Slight 12/26/22 07:39 ESR 24 mm/Hr (0-20) H 12/28/22 06:24 PT 12.1 sec (9.0-12.0) H 12/25/22 11:48 INR 1.2 (<1.2) H 12/25/22 11:48 APTT 23.8 sec (22.0-30.0) 12/25/22 11:48 Sodium 135 mmol/L (135-145) 12/29/22 05:25 Potassium 4.2 mmol/L (3.5-5.5) 12/29/22 05:25 Chloride 99 mmol/L (96-109) 12/29/22 05:25 Carbon Dioxide 26.6 mmol/L (21.6-31.8) 12/29/22 05:25 Anion Gap 9.40 mmol/L (4.00-12.00) 12/29/22 05:25 BUN 17.1 mg/dL (9.0-27.0) 12/29/22 05:25 Creatinine 0.6 mg/dL (0.6-1.5) 12/29/22 05:25 Est GFR (CKD-EPI) 101 (>=60) 12/29/22 05:25 Est GFR (CKD-EPI)AfAm >90 (>60 ml/min/1.73 sqM) 12/28/22 06:24 Est GFR (CKD-EPI)NonAf >90 (>60 ml/min/1.73 sqM) 12/28/22 06:24 BUN/Creatinine Ratio 28.50 Ratio (12.00-20.00) H 12/29/22 05:25 Glucose 175 mg/dL (70-110) H 12/29/22 05:25 POC Glucose (mg/dL) 187 mg/dL (70-110) H 12/29/22 11:32 POC Glu Blind Lacer ID Mary Jo Rasmussen 12/29/22 11:[address] Glu mg/dL 387 mg/dL 12/26/22 07:39 Hemoglobin A1c 15.1 % (<=6.0) H 12/26/22 07:39 Plasma Lactic Acid Amos 1.1 mmol/L (0.7-2.0) 12/26/22 07:39 Calcium 8.6 mg/dL (8.7-10.3) L 12/29/22 05:25 Total Bilirubin 0.5 mg/dL (0.2-1.3) 12/28/22 06:24 AST 22 U/L (17-59) 12/28/22 06:24 ALT 17 U/L (4-49) 12/28/22 06:24 Alkaline Phosphatase 78 U/L (38-126) 12/28/22 06:24 Ammonia <9 umol/L (<30) 12/26/22 07:39 Troponin I <0.012 ng/mL (0.000-0.034) 12/25/22 11:48 C-Reactive Protein 5.9 mg/dL (<1.0) H 12/28/22 06:24 Total Protein 6.7 g/dL (6.3-8.2) 12/28/22 06:24 Albumin 3.1 g/dL (3.5-5.0) L 12/28/22 06:24 Globulin 3.6 g/dL 12/28/22 06:24 Albumin/Globulin Ratio 0.9 12/28/22 06:24 Vitamin B12 1304.0 pg/mL (200.0-944.0) H 12/26/22 07:39 Folate 4.50 ng/mL (4.40-31.00) 12/26/22 07:39 TSH 0.843 mIU/L (0.465-4.680) 12/26/22 07:39 Urine Color Yellow 12/25/22 11:48 Urine Appearance Turbid (Clear) 12/25/22 11:48 Urine pH 5.5 (5.0-8.0) 12/25/22 11:48 Ur Specific [place] 1.027 (1.001-1.035) 12/25/22 11:48 Urine Protein 1+ (Negative) H 12/25/22 11:48 Urine Glucose (UA) 4+ (Negative) H 12/25/22 11:48 Urine Ketones 3+ (Negative) H 12/25/22 11:48 Urine Blood Moderate (Negative) H 12/25/22 11:48 Urine Nitrite Negative (Negative) 12/25/22 11:48 Urine Bilirubin Negative (Negative) 12/25/22 11:48 Urine Urobilinogen <2.0 mg/dL (<2.0) 12/25/22 11:48 Ur Leukocyte Esterase Large (Negative) H 12/25/22 11:48 Urine RBC 36 /hpf (0-5) H 12/25/22 11:48 Urine WBC >182 /hpf (0-5) H 12/25/22 11:48 Urine WBC Clumps Moderate /hpf (None) H 12/25/22 11:48 Urine Mucus Rare /hpf (None) H 12/25/22 11:48 Urine Opiates Screen Detected (NotDetected) H 12/25/22 11:48 Ur Oxycodone Screen Not Detected (NotDetected) 12/25/22 11:48 Urine Methadone Screen Not Detected (NotDetected) 12/25/22 11:48 Ur Propoxyphene Screen Not Detected (NotDetected) 12/25/22 11:48 Ur Barbiturates Screen Not Detected (NotDetected) 12/25/22 11:48 U Tricyclic Antidepress Not Detected (NotDetected) 12/25/22 11:48 Ur Phencyclidine Scrn Not Detected (NotDetected) 12/25/22 11:48 Ur Amphetamines Screen Not Detected (NotDetected) 12/25/22 11:48 U Methamphetamines Scrn Not Detected (NotDetected) 12/25/22 11:48 U Benzodiazepines Scrn Not Detected (NotDetected) 12/25/22 11:48 Urine Cocaine Screen Not Detected (NotDetected) 12/25/22 11:48 U Marijuana (THC) Screen Not Detected (NotDetected) 12/25/22 11:48 Serum Alcohol <10 mg/dL 12/25/22 11:48 Allergies Allergy/AdvReac Type Severity Reaction Status Date / Time No Known Allergies Allergy Verified 12/25/22 11:22 12/29/22 13:54
[2022-12-29] MEDS: SODIUM CHLORIDE 0.9% 1,000 ML IV SCH (14:51)
[2022-12-29 16:39] LABS: Glucose,Whole Blood 240 mg/dL (70-110)
[2022-12-29 21:03] LABS: Glucose,Whole Blood 283 mg/dL (70-110)
[2022-12-29] MEDS: ATORVASTATIN 40 MG TAB PO SCH (21:40)
[2022-12-30] MEDS: SODIUM CHLORIDE 0.9% 1,000 ML IV SCH ×2 (01:43→17:07)
[2022-12-30] MEDS: VANCOMYCIN 1,500 MG in SODIUM CHLORIDE 0.9% 500 ML 500 ML IVPB SCH ×2 (01:48→15:09)
[2022-12-30 06:30] LABS: Glucose,Whole Blood 211 mg/dL (70-110)
[2022-12-30] MEDS: INSULIN ASPART (NovoLOG) 100 UNIT/ML VIAL SQ SCH ×4 (06:32→21:35)
[2022-12-30 08:39] LABS: African American GFR (CKD) >90 (>60 ml/min/1.73 sqM); Anion Gap 7 mmol/L; Blood Urea Nitrogen 14 mg/dL (9-20); Calcium 8.4 mg/dL (8.4-10.2); Carbon Dioxide 29 mmol/L (22-30); Chloride 104 mmol/L (98-107); Glucose 184 mg/dL (74-99); Non-African American GFR(CKD) >90 (>60 ml/min/1.73 sqM); Potassium 4.1 mmol/L (3.5-5.1); Sodium 140 mmol/L (137-145)
[2022-12-30] MEDS: QUEtiapine 25 MG TAB PO SCH ×2 (08:44→21:35)
[2022-12-30] MEDS: INSULN ASP PRT/INSULIN ASPART 100 UNIT/ML 10 ML VIAL SQ SCH ×2 (08:56→17:06)
[2022-12-30] MEDS: HEPARIN SODIUM,PORCINE/PF 5,000 UNIT/0.5 ML SYRINGE SQ SCH ×2 (08:56→21:35)
[2022-12-30] MEDS: lisinopriL 10 MG TAB PO SCH (08:58)
[2022-12-30] MEDS: FOLIC ACID 1 MG TAB PO SCH (08:58)
[2022-12-30] MEDS: SYMBICORT 160-4.5 MCG INHALER INHALATION SCH ×2 (09:16→19:13)
[2022-12-30] MEDS: ALBUTEROL NEBULIZED 2.5 MG/3 ML INHALATION SCH ×4 (09:16→19:13)
[2022-12-30] MEDS: FAMOTIDINE 20 MG/2 ML VIAL IV SCH ×2 (09:43→21:35)
[2022-12-30 11:27] LABS: Glucose,Whole Blood 312 mg/dL (70-110)
--- NOTE | 2022-12-30 12:39 | XR ---
EXAMINATION TYPE: XR chest 1V portable DATE OF EXAM: 12/30/2022 12:31 PM COMPARISON: Chest radiographs from 12/25/2022 TECHNIQUE: XR chest 1V portable Frontal view of the chest. CLINICAL INDICATION:Male, 77 years old with history of short of breath; FINDINGS: Lungs/Pleura: Lower lung volumes than prior. Prominent interstitial lung markings are seen scattered throughout the lungs with flattening of the diaphragm and increased lucency of the lung apices. No ev idence of focal consolidation, pneumothorax or pleural effusion. Pulmonary vascularity: Unremarkable. Heart/mediastinum: Cardiomediastinal silhouette is unremarkable. Musculoskeletal: No acute osseous pathology. IMPRESSION: Chronic changes without acute pulmonary process. No significant change from prior given degree of ins piration.
[2022-12-30 14:28] LABS: Basophils # (A) 0.04 X 10*3/uL (0.00-0.10); Basophils % (A) 0.5 %; Eosinophils # (A) 0.28 X 10*3/uL (0.04-0.35); Eosinophils % (A) 3.8 %; HCT 36.1 % (39.6-50.0); HGB 11.8 d/dL (13.0-17.0); Lymphocytes # (A) 2.66 X 10*3/uL (0.90-5.00); Lymphocytes % (A) 36.1 %; MCH 33.6 pg (27.0-32.0); MCHC 32.7 d/dL (32.0-37.0); MCV 102.8 FL (80.0-97.0); Mean Platelet Volume 9.2 FL (9.5-12.2); Monocytes % (A) 9.5 %; NRBC Per 100 WBC 0 X 10*3/uL (0.00-0.01); Neutrophils # (A) 3.63 X 10*3/uL (1.80-7.70); Neutrophils % (A) 49.4 %; Platelet Count 255 X 10*3/uL (140-440); RBC 3.51 X 10*6/uL (4.40-5.60); RDW 12.8 % (11.5-14.5); WBC 7.36 X 10*3/uL (4.50-10.00)
--- NOTE | 2022-12-30 14:51 | P.EN ---
Patient will be receiving a PICC line as patient will be requiring IV antibiotics per infectious disease recommendations on discharge in the form of vancomycin for MRSA bacteremia with urinary tract infection. Patient will be continued on vancomycin 1500 mg with pharmacy to dose every 12 hours for 2 weeks and end date would be 01/14/2023.
--- NOTE | 2022-12-30 14:54 | P.PN ---
Subjective Progress Note Date: 12/29/22 Principal diagnosis: MRSA bacteremia and UTI Patient is a 77-year-old male presenting to the ER for evaluation of mental status changes, patient did have a positive UA concerning for UTI with a blood cultures subsequently coming back positive with MRSA on today's evaluation that is 12/29/2022, the patient remains to be afebrile, the patient is breathing comfortably on room air. The patient having any chest pain shortness of breath or cough no nausea no vomiting no abdominal pain no diarrhea, patient has been pulling out his IV as reported by the group home l ast night however the patient did get IV this morning and has kept it so for Objective - Vital Signs Vital signs: Vital Signs Temp 97.6 F 12/29/22 06:55 Pulse 103 H 12/29/22 06:55 Resp 16 12/29/22 06:55 BP 134/75 12/29/22 09:40 Pulse Ox 95 12/29/22 06:55 FiO2 Intake & Output 12/28/22 12/29/22 12/29/22 18:59 06:59 18:59 Output Total 2000 200 Balance -2000 -200 Output: Urine 1999 200 Other: Voiding Method Urinal Diaper # Voids 4 4 # Bowel Movements 1 - Exam GENERAL DESCRIPTION: An elderly male lying in bed in no distress RESPIRATORY SYSTEM: Unlabored breathing , decreased breath sounds at bases HEART: S1 S2 regular rate and rhythm , ABDOMEN: Soft , no tenderness EXTREMITIES: No edema feet - Labs CBC & Chem 7: 12/30/22 07:32 12/30/22 07:32 Labs: Abnormal Lab Results - Last 24 Hours (Table) 12/28/22 12/28/22 12/28/22 Range/Units 06:24 16:38 20:35 RBC (4.40-5.60) X 10*6/uL Hgb (13.0-17.0) d/dL Hct (39.6-50.0) % MCV (80.0-97.0) FL MCH (27.0-32.0) pg MPV (9.5-12.2) FL Eosinophils # (0.04-0.35) X 10*3/uL ESR 24 H (0-20) mm/Hr BUN/Creatinine Ratio (12.00-20.00) Ratio Glucose (70-110) mg/dL POC Glucose (mg/dL) 326 H 195 H (70-110) mg/dL Calcium (8.7-10.3) mg/dL 12/29/22 12/29/22 12/29/22 Range/Units 05:25 05:25 06:01 RBC 3.56 L (4.40-5.60) X 10*6/uL Hgb 11.8 L (13.0-17.0) d/dL Hct 35.1 L (39.6-50.0) % MCV 98.6 H (80.0-97.0) FL MCH 33.1 H (27.0-32.0) pg MPV 9.2 L (9.5-12.2) FL Eosinophils # 0.38 H (0.04-0.35) X 10*3/uL ESR (0-20) mm/Hr BUN/Creatinine Ratio 28.50 H (12.00-20.00) Ratio Glucose 175 H (70-110) mg/dL POC Glucose (mg/dL) 188 H (70-110) mg/dL Calcium 8.6 L (8.7-10.3) mg/dL 12/29/22 12/29/22 Range/Units 10:32 11:32 RBC (4.40-5.60) X 10*6/uL Hgb (13.0-17.0) d/dL Hct (39.6-50.0) % MCV (80.0-97.0) FL MCH (27.0-32.0) pg MPV (9.5-12.2) FL Eosinophils # (0.04-0.35) X 10*3/uL ESR (0-20) mm/Hr BUN/Creatinine Ratio (12.00-20.00) Ratio Glucose (70-110) mg/dL POC Glucose (mg/dL) 248 H 187 H (70-110) mg/dL Calcium (8.7-10.3) mg/dL Microbiology - Last 24 Hours (Table) 12/25/22 14:40 Blood Culture - Preliminary Blood 12/25/22 14:25 Blood Culture Gram Stain - Final Blood Blood Culture - Final Methicillin resist S. aureus 12/25/22 11:48 Urine Culture - Final Urine,Clean Catch Methicillin resist S. aureus Assessment and Plan (1) MRSA bacteremia Current Visit: Yes Status: Acute Code(s): R78.81 - BACTEREMIA; B95.62 - METHICILLIN RESIS STAPH INFCT CAUSING DISEASES CLASSD [id number] SNOMED Code(s): 31579233597415518 (2) UTI (urinary tract infection) Current Visit: Yes Status: Acute Code(s): N39.0 - URINARY TRACT INFECTION, SITE NOT SPECIFIED SNOMED Code(s): 00426076 Plan: 1patient with MRSA bacteremia in this patient presented to hospital with mental status changes confusion he did have urinary symptoms of burning and difficult urination requiring Vasquez catheter placement significant positive UA likely uri nary source patient currently not behaving as pneumonia abdominal soft on clinical examination no evidence of any cellulitis or joint swelling 2-ultrasound the kidney bladder area was unremarkable blood culture has been repeated 12/25/2022 as well as 12/28/2022 and has been doing so for 3-we will continue the patient on Vancomycin pharmacy to dose target trough of 15 while watching kidney function and Vanco trough closely Dictation was produced using stream[employer] dictation software. please excuse any grammatical, word or spelling errors.- Time with Patient: Less than 30
--- NOTE | 2022-12-30 14:55 | P.PN ---
Subjective Progress Note Date: 12/30/22 Principal diagnosis: MRSA bacteremia and UTI Patient is a 77-year-old male presenting to the ER for evaluation of mental status changes, patient did have a positive UA concerning for UTI with a blood cultures subsequently coming back positive with MRSA on today's evaluation that is 12/30/2022, the patient continues to be afebrile, the patient is breathing comfortably on room air. The patient having any chest pain shortness of breath or cough no nausea no vomiting no abdominal pain no diarrhea, patient has kept his IV so for White count is normal blood culture repeated so far negative Objective - Vital Signs Vital signs: Vital Signs Temp 98.0 F 12/30/22 07:24 Pulse 94 12/30/22 09:25 Resp 17 12/30/22 07:24 BP 105/66 12/30/22 07:24 Pulse Ox 94 L 12/30/22 09:23 FiO2 Intake & Output 12/29/22 12/30/22 12/30/22 18:59 06:59 18:59 Intake Total 1600 Output Total 200 200 Balance 1400 -200 Intake: Intake, IV Titration 1600 Amount Sodium Chloride 0.9% 1, 600 000 ml @ 75 mls/hr IV . [id number] [facility] Rx#:[id number] Sodium Chloride 0.9% 500 500 ml 500 ml @ 999 mls/hr IV .Q31M [facility] Rx#:[id number] Vancomycin 1,500 mg In 500 Sodium Chloride 0.9% 500 ml 500 ml @ 167 mls/hr IVPB Q12H [facility] Rx#: [id number] Output: Urine 200 200 Other: Voiding Method Urinal Urinal Urinal Diaper Diaper Diaper # Voids 4 3 # Bowel Movements 1 - Exam GENERAL DESCRIPTION: An elderly male lying in bed in no distress RESPIRATORY SYSTEM: Unlabored breathing , decreased breath sounds at bases HEART: S1 S2 regular rate and rhythm , ABDOMEN: Soft , no tenderness EXTREMITIES: No edema feet - Labs CBC & Chem 7: 12/30/22 07:32 12/30/22 07:32 Labs: Abnormal Lab Results - Last 24 Hours (Table) 12/29/22 12/29/22 12/30/22 Range/Units 16:38 21:02 06:28 Creatinine (0.66-1.25) mg/dL Glucose (74-99) mg/dL POC Glucose (mg/dL) 240 H 283 H 211 H (70-110) mg/dL 12/30/22 12/30/22 Range/Units 07:32 11:25 Creatinine 0.52 L (0.66-1.25) mg/dL Glucose 184 H (74-99) mg/dL POC Glucose (mg/dL) 312 H (70-110) mg/dL Microbiology - Last 24 Hours (Table) 12/28/22 06:24 Blood Culture - Preliminary Blood Assessment and Plan (1) MRSA bacteremia Current Visit: Yes Status: Acute Code(s): R78.81 - BACTEREMIA; B95.62 - METHICILLIN RESIS STAPH INFCT CAUSING DISEASES CLASSD [facility] SNOMED Code(s): 54340360784679676 (2) UTI (urinary tract infection) Current Visit: Yes Status: Acute Code(s): N39.0 - URINARY TRACT INFECTION, SITE NOT SPECIFIED SNOMED Code(s): 93713437 Plan: 1patient with MRSA bacteremia in this patient presented to hospital with mental status changes confusion he did have urinary symptoms of burning and difficult urination requiring Vasquez catheter placement significant positive UA likely urinary source patient currently not behaving as pneumonia abdominal soft on clinical examination no evidence of any cellulitis or joint swelling 2-ultrasound the kidney bladder area was unremarkable blood culture has been repeated 12/25/2022 as well as 12/28/2022 and has been doing so for 3-we will continue the patient on Vancomycin, we will get a PICC line and plan for 2 weeks of IV vancomycin pharmacy to dose on discharge Dictation was produced using [employer] dictation software. please excuse any grammatical, word or spelling errors.- Time with Patient: Less than 30
[2022-12-30 16:44] LABS: Glucose,Whole Blood 215 mg/dL (70-110)
[2022-12-30 20:59] LABS: Glucose,Whole Blood 239 mg/dL (70-110)
[2022-12-30] MEDS: ATORVASTATIN 40 MG TAB PO SCH (21:35)
--- NOTE | 2022-12-30 22:45 | PN ---
PROGRESS NOTE DATE OF SERVICE: 12/30/2022 SUBJECTIVE: This is a 77-year-old gentleman, admitted with UTI with MRSA with sepsis, also had MRSA in the blood. No chest pain. No palpitation. The patient is confused. OBJECTIVE: VITAL SIGNS: Pulse is 98, blood pressure 105/66, respirations 17. CHEST: Clear to auscultation. CARDIOVASCULAR: S1, S2. ABDOMEN: Soft. NERVOUS SYSTEM: Nonfocal. LABORATORY DATA: Reviewed. ASSESSMENT: 1. Urinary tract infection with methicillin-resistant Staphylococcus aureus with sepsis with methicillin-resistant Staphylococcus aureus from the blood. 2. Change in mental status, metabolic encephalopathy. 3. Hyperglycemia. 4. Bilateral leg swelling. 5. Multiple medical issues. RECOMMENDATIONS: Recommend to continue current management. Continue symptomatic treatment. Otherwise, vancomycin. Possible PICC line. Repeat labs. Closely follow with Infectious Disease. Further recommendations to follow. PT, OT evaluation. MMODL / IJN: [id number] /
[2022-12-30] MEDS ORDERED: IPRATROPIUM-ALBUTEROL 3 ML NEB INHALATION PRN (23:21)
[2022-12-31] MEDS: VANCOMYCIN 1,500 MG in SODIUM CHLORIDE 0.9% 500 ML 500 ML IVPB SCH (02:44)
[2022-12-31 05:58] LABS: Glucose,Whole Blood 282 mg/dL (70-110)
[2022-12-31] MEDS: SODIUM CHLORIDE 0.9% 1,000 ML IV SCH (06:03)
[2022-12-31] MEDS: INSULIN ASPART (NovoLOG) 100 UNIT/ML VIAL SQ SCH ×2 (06:44→13:10)
[2022-12-31] MEDS: FAMOTIDINE 20 MG/2 ML VIAL IV SCH (08:29)
[2022-12-31] MEDS: ALBUTEROL NEBULIZED 2.5 MG/3 ML INHALATION SCH ×2 (08:49→12:36)
[2022-12-31] MEDS: SYMBICORT 160-4.5 MCG INHALER INHALATION SCH (08:50)
[2022-12-31 08:59] VITALS: BP 110/67; RESP 17; TEMP 97.5
[2022-12-31] MEDS: HEPARIN SODIUM,PORCINE/PF 5,000 UNIT/0.5 ML SYRINGE SQ SCH (09:11)
[2022-12-31 09:38] LABS: INR 1.1 (<1.2); Prothrombin Time 11.2 sec (9.0-12.0)
[2022-12-31] MEDS ORDERED: LIDOCAINE 1% INJ 10MG/ML (5 ML VIAL-PF) SQ ONE (09:40)
--- NOTE | 2022-12-31 09:51 | P.OP ---
Date of Procedure: 12/31/22 Description of Procedure: Date of Procedure: 12/31/2022 Preoperative Diagnosis: Need for long-term IV antibiotic access Postoperative Diagnosis: Same. Procedure(s) Performed: Ultrasound-guided cannulation left basilic vein. Insertion of peripherally inserted central catheter under fluoroscopic guidance. Anesthesia: local 1% lidocaine Surgeon: Pedro Estimated Blood Loss (ml): 5 IV fluids (ml): 0 Urine output (ml): 0 Pathology: none sent Condition: stable Disposition: no change Indications for Procedure: Patient is a 77-year-old male with evidence of urosepsis on admission.Patient will require long-term IV antibiotics as an outpatient patient is offered a PICC line to allow for intravenous administration of antibiotics. Description of Procedure: Patient was brought to the special procedure suite. The left upper extremity sterilely prepped and draped in usual manner. Ultrasound was utilized to identify the basilic vein which was normally compressible free of visible thrombus. Permenant image was stored. 1% Xylocaine was utilized for local anesthesia tissues overlying the vein. Through this anesthetized area and with the aid of ultrasound a micropuncture needle was utilized to cannulate the vein. Once cannulated, Softip guidewire was advanced into the vein. The needle was withdrawn and a micropuncture sheath and dilator advanced over the guidewire. The guidewire was withdrawn and exchanged for the PICC guidewire and measured 45 cm to the cavoatrial junction. The catheter was cut to size and advanced into the cavoatrial junction without resistance. The sheath was peeled away. Blood was easily withdrawn through the catheter and the catheter was then flushed with heparinized saline solution and secured to the skin. Patient tolerated procedure well and was returned to their room in satisfactory and stable condition.
[2022-12-31] MEDS: FOLIC ACID 1 MG TAB PO SCH (10:05)
[2022-12-31] MEDS: lisinopriL 10 MG TAB PO SCH (10:05)
[2022-12-31] MEDS: QUEtiapine 25 MG TAB PO SCH (10:05)
[2022-12-31] MEDS: INSULN ASP PRT/INSULIN ASPART 100 UNIT/ML 10 ML VIAL SQ SCH (10:07)
[2022-12-31 11:16] LABS: Glucose,Whole Blood 240 mg/dL (70-110)
[2022-12-31 12:48] VITALS: PULSE 92
[2022-12-31] MEDS ORDERED: VANCOMYCIN TROUGH DUE 1 EACH MISC MISCELLANE ONE (13:00)
[2022-12-31 13:03] LABS: African American GFR (CKD) >90 (>60 ml/min/1.73 sqM); Non-African American GFR(CKD) >90 (>60 ml/min/1.73 sqM)
--- NOTE | 2022-12-31 13:05 | P.DS ---
Providers Date of admission: 12/25/22 13:58 Expected date of discharge: 12/31/22 Attending physician: Ken Sandoval MD Consults: 12/25/22 13:58 Consult Physician Routine Consulting Provider: Abdon Love Consult Reason/Comments: ams Do you want consulting provider notified?: Yes 12/27/22 12:54 Consult Physician Routine Consulting Provider: Anthony Dela Cruz Consult Reason/Comments: bacteremia Do you want consulting provider notified?: Already Contacted 12/28/22 20:56 Consult Physician Routine Consulting Provider: Diogenes Henning Consult Reason/Comments: AMS Do you want consulting provider notified?: Yes, Notify in am Primary care physician: Physician Nonstaff Hospital Course: Final diagnosis Acute urinary tract infection with MRSA with sepsis and bacteremia, present on admission Change in mental status, metabolic encephalopathy, likely secondary to above, improving Diabetes mellitus, type II uncontrolled with Hyperglycemia Bilateral lower extremity swelling History of COPD, not an exacerbation Hyperlipidemia history Hypertension history GI prophylaxis DVT prophylaxis Full code Discharge disposition Patient is being discharged in a stable condition with guarded prognosis to [facility] for continued IV antibiotics and physical therapy. Patient will follow-up with his PCP out in [place] in the outpatient setting upon discharge. Patient is to continue with IV antibiotics in the form of vancomycin for the next 2 weeks with pharmacy to dose twice daily as scheduled. Total time taken is greater than 35 minutes. Hospital course This is a 77year-old male who was recently admitted with urinary tract infection and MRSA with sepsis also MRSA in the blood bacteremia. Patient has received a PICC line and will be going on vancomycin per infectious disease recommendations for the next 2 weeks. With pharmacy to dose. Recommend protocol labs including CRP, Vanco trough, CBC, CMP. Patient has been cleared by consultations for discharge to [facility] today. Please refer to other consultation notes for further HPI. Patient has been instructed to follow-up with primary care provider as well in the outpatient setting. Currently no reports of chest pain, shortness of breath, or palpitations. Patient is afebrile. No reports of nausea or vomiting and patient is tolerating diet. Patient is a diabetic and would recommend continuing to monitor Accu-Cheks before meals and at bedtime and continue with insulin regimen as mentioned below. Patient will be going to [facility] today. Guarded prognosis Physical exam: Gen: This is a 77-year-old male who is awake, alert and oriented, well- developed, well-nourished HEENT: Head is atraumatic, normocephalic. Pupils equal, round. Sclerae is anicteric. NECK: Supple. No JVD. No lymphadenopathy. No thyromegaly. LUNGS: Clear to auscultation. No wheezes or rhonchi. No intercostal retractions. HEART: Regular rate and rhythm. No murmur. ABDOMEN: Soft. Bowel sounds are present. No masses. No tenderness. EXTREMITIES: No pedal edema. No calf tenderness. NEUROLOGICAL: Patient is awake, alert and oriented x3. Cranial nerves 2 through 12 are grossly intact. Diffusely weak Please refer to medication reconciliation sheet for a list of medications. The impression and plan of care has been dictated by Kayla Arnold, Nurse Practitioner as directed. Dr. Florencio MD I have performed a history and examination and MDM of this patient, discussed the same with the dictator, and agree with the dictator's assessment and plan as written ,documented as a scribe. Based on total visit time, I have performed more than 50% of the visit. Patient Condition at Discharge: Fair Plan - Discharge Summary Discharge Rx Participant: No New Discharge Prescriptions: New Ipratropium-Albuterol Nebulize [Duoneb 0.5 mg-3 mg/3 ml Soln] 3 ml INHALATION RT-Q6H PRN each PRN Reason: Shortness Of Breath Folic Acid 1 mg PO DAILY tab Heparin Sodium,Porcine [Heparin Sodium] 5,000 unit SQ Q12HR #60 each INSULIN ASPART (NovoLOG) [NovoLOG (formulary)] 0 unit SQ ACHS each QUEtiapine [SEROquel] 12.5 mg PO BID tab Albuterol Nebulized [Ventolin Nebulized] 2.5 mg INHALATION RT-QID ml Pantoprazole [Protonix] 40 mg PO DAILY #30 tab Acetaminophen Tab [Tylenol] 650 mg PO Q6HR PRN tab PRN Reason: Mild Pain Or Fever > 100.5 Vancomycin 1,500 mg IVPB Q12H 14 Days #28 each Continue lisinopriL [Prinivil] 10 mg PO DAILY Simvastatin [Zocor] 80 mg PO HS Insulin Lispro Protamin/Lispro [humaLOG MIX 75-25 Kwikpen] 50 unit SQ DAILY Budesonide/Formoterol Fumarate [Symbicort 160-4.5 Mcg Inhaler] 2 puff INHALATION RT-BID Albuterol Sulfate [Ventolin HFA] 2 puff INHALATION RT-Q4H PRN PRN Reason: Shortness Of Breath Insulin Lispro Protamin/Lispro [humaLOG MIX 75-25 Kwikpen] 35 unit SQ HS Discontinued metroNIDAZOLE [Flagyl] 500 mg PO BID Naproxen [Naprosyn] 500 mg PO BID PRN PRN Reason: Pain Furosemide [Lasix] 40 mg PO BID Ciprofloxacin HCl [Cipro] 500 mg PO BID Discharge Medication List Albuterol Sulfate [Ventolin HFA] 2 puff INHALATION RT-Q4H PRN 12/25/22 [History] Budesonide/Formoterol Fumarate [Symbicort 160-4.5 Mcg Inhaler] 2 puff INHALATION RT-BID 12/25/22 [History] Insulin Lispro Protamin/Lispro [humaLOG MIX 75-25 Kwikpen] 35 unit SQ HS 12/25/22 [History] Insulin Lispro Protamin/Lispro [humaLOG MIX 75-25 Kwikpen] 50 unit SQ DAILY 12/25/22 [History] Simvastatin [Zocor] 80 mg PO HS 12/25/22 [History] lisinopriL [Prinivil] 10 mg PO DAILY 12/25/22 [History] Acetaminophen Tab [Tylenol] 650 mg PO Q6HR PRN tab 12/31/22 [Rx] Albuterol Nebulized [Ventolin Nebulized] 2.5 mg INHALATION RT-QID ml 12/31/22 [Rx] Folic Acid 1 mg PO DAILY tab 12/31/22 [Rx] Heparin Sodium,Porcine [Heparin Sodium] 5,000 unit SQ Q12HR #60 each 12/31/22 [Rx] INSULIN ASPART (NovoLOG) [NovoLOG (formulary)] 0 unit SQ ACHS each 12/31/22 [Rx] Ipratropium-Albuterol Nebulize [Duoneb 0.5 mg-3 mg/3 ml Soln] 3 ml INHALATION RT-Q6H PRN each 12/31/22 [Rx] Pantoprazole [Protonix] 40 mg PO DAILY #30 tab 12/31/22 [Rx] QUEtiapine [SEROquel] 12.5 mg PO BID tab 12/31/22 [Rx] Vancomycin 1,500 mg IVPB Q12H 14 Days #28 each 12/31/22 [Rx] Follow up Appointment(s)/Referral(s): Nonstaff,Physician [Primary Care Provider] - 1-2 days Activity/Diet/Wound Care/Special Instructions: Per Dr. Dela Cruz: Vancomycin 1500mg every 12 hours to start with pharmacy to dose for 2 weeks. Discharge Disposition: TRANSFER TO SNF/ECF
[2022-12-31 13:42] LABS: HGB 11.1 d/dL (13.0-17.0); MCH 33.3 pg (27.0-32.0); MCHC 32.6 d/dL (32.0-37.0); MCV 102.1 FL (80.0-97.0); Mean Platelet Volume 9.3 FL (9.5-12.2); NRBC Per 100 WBC 0 X 10*3/uL (0.00-0.01); Platelet Count 226 X 10*3/uL (140-440); RBC 3.33 X 10*6/uL (4.40-5.60); RDW 12.7 % (11.5-14.5); WBC 7.44 X 10*3/uL (4.50-10.00)
[2022-12-31 13:43] LABS: Basophils # (A) 0.05 X 10*3/uL (0.00-0.10); Basophils % (A) 0.7 %; Eosinophils # (A) 0.37 X 10*3/uL (0.04-0.35); Lymphocytes # (A) 2.28 X 10*3/uL (0.90-5.00); Lymphocytes % (A) 30.6 %; Monocytes # (A) 0.75 X 10*3/uL (0.20-1.00); Monocytes % (A) 10.1 %; Neutrophils # (A) 3.94 X 10*3/uL (1.80-7.70); Neutrophils % (A) 52.9 %
[2022-12-31] MEDS ORDERED: VANCOMYCIN 1,750 MG in SODIUM CHLORIDE 0.9% 500 ML 500 ML IVPB SCH (14:00)
[2022-12-31 15:42] LABS: BUN/Creat Ratio 20.83 Ratio (12.00-20.00); Blood Urea Nitrogen 12.5 mg/dL (9.0-27.0); Calcium 8.2 mg/dL (8.7-10.3); Carbon Dioxide 23.1 mmol/L (21.6-31.8); Chloride 105 mmol/L (96-109); Glucose 273 mg/dL (70-110); Potassium 4.1 mmol/L (3.5-5.5); Sodium 139 mmol/L (135-145)
--- NOTE | 2023-01-01 09:19 | IR ---
EXAMINATION TYPE: IR cvc insert >=5 years DATE OF EXAM: 12/31/2022 COMPARISON: NONE HISTORY: Antibiotics, 45 cm left basilic, fluoroscopy time 0.2 minutes, DAP 4.1435 Gycm2 Fluoroscopy was provided to the referring clinician.
== END 2022-12-31 14:51 | DRG 871 ==
LOC: EC 11:15 → 4SSUR 13:58
PROVIDERS: ADMIT Internal Medicine; ATTEND Internal Medicine
PROC: 4A10X4Z Monitoring of Central Nervous Electrical Activity, External Approach (ICD-10-PCS; 2022-12-27)
PROC: 05HD33Z Insertion of Infusion Device into Right Cephalic Vein, Percutaneous Approach (ICD-10-PCS; 2022-12-28)
PROC: B5181ZA Fluoroscopy of Superior Vena Cava using Low Osmolar Contrast, Guidance (ICD-10-PCS; 2022-12-31)
PROC: B548ZZA Ultrasonography of Superior Vena Cava, Guidance (ICD-10-PCS; 2022-12-31)
PROC: 02HV33Z Insertion of Infusion Device into Superior Vena Cava, Percutaneous Approach (ICD-10-PCS; principal; 2022-12-31 11:00)
DX: A41.02 Sepsis due to Methicillin resistant Staphylococcus aureus (principal); G92.8 Other toxic encephalopathy; N39.0 Urinary tract infection, site not specified; E87.1 Hypo-osmolality and hyponatremia; J98.11 Atelectasis; L03.116 Cellulitis of left lower limb; I10 Essential (primary) hypertension; E53.8 Deficiency of other specified B group vitamins; E78.5 Hyperlipidemia, unspecified; Z79.4 Long term (current) use of insulin; J44.9 Chronic obstructive pulmonary disease, unspecified; Z79.899 Other long term (current) drug therapy; Z79.51 Long term (current) use of inhaled steroids; Z86.73 Personal history of transient ischemic attack (TIA), and cerebral infarction without residual deficits; Z87.19 Personal history of other diseases of the digestive system; Z87.891 Personal history of nicotine dependence
CPT/HCPCS: 36415; 36573; 70450; 71045; 71046; 76770; 80048; 80053; 80202; 80306; 80320; 81001; 82140; 82565; 82607; 82746; 83036; 83605; 84443; 84484; 85025; 85610; 85652; 85730; 86140; 87040; 87077; 87086; 87186; 93005; 93970; 94640; 94760; 95816; 96365; 96366; 99285